=== PATIENT | female | born 1935 | race Caucasian/White ===

== ENCOUNTER → 2018-08-23 05:00 | Outpatient (REF) | payer MEDICARE, OTHER, SELFPAY ==
[2018-08-23 08:07] LABS: Hematocrit 39.5 % (37-47); Mean Corp Hgb Conc 32.9 g/gl (32-36); Mean Corpuscular Hgb 29.7 pg (27.0-32.0); Mean Corpuscular Volume 90.2 fL (81-99); Mean Platelet Vol. 8.3 fl (6.2-12.0); Platelet Count 209 K/mm3 (150-450); RBC Distribution Width SD 42.8 fl (35.1-43.9); Red Blood Count 4.38 M/mm3 (4.2-5.4); White Blood Count 5.9 K/mm3 (4.4-11.0)
[2018-08-23 08:08] LABS: Scan Indicated on CBC? Y/N NO
[2018-08-23 08:22] LABS: Albumin, Serum 3.7 g/dL (3.2-5.0); BUN 15 mg/dL (7-18); BUN/Creat Ratio 19.4 RATIO (10-20); Creatinine, Serum 0.77 mg/dL (0.55-1.02); EST Glomerular Filtration Rate 76 mL/min (>60); Est Glom Filt Rate - Afr Amer 92 mL/min (>60); Glucose 101 mg/dL (74-106); Protein, Total 6.7 g/dL (6.4-8.2)
[2018-08-23 08:23] LABS: ALB/GLOB Ratio 1.2 RATIO (0.9-2.4); AST(SGOT) 24 U/L (15-37); Alanine Aminotransfer ALT/SGPT 34 U/L (13-56); Alkaline Phosphatase 49 U/L (45-117); Anion Gap 6 (5-15); Calcium,Total 8.6 mg/dL (8.5-10.1); Chloride 101 mmol/L (98-107); Cholesterol 139 mg/dL (200); High Density Lipoprotein 57 mg/dL; Potassium 4.2 mmol/L (3.5-5.1); Sodium Level 134 mmol/L (136-145); Triglycerides 94 mg/dL; Very Low Density Lipoprotein 19 mg/dL (5-40)
== END ==
LOC: OLS.DANBUR 05:00
PROVIDERS: Visit Provider Family Medicine
DX: I10 Essential (primary) hypertension (principal); E78.5 Hyperlipidemia, unspecified; E11.9 Type 2 diabetes mellitus without complications; I25.10 Atherosclerotic heart disease of native coronary artery without angina pectoris
CPT/HCPCS: 36415; 80053; 80061; 85027

== ENCOUNTER → 2018-10-25 05:00 | Outpatient (REF) | payer MEDICARE, OTHER, SELFPAY ==
[2018-10-25 09:15] LABS: Hematocrit 41.2 % (37-47); Hemoglobin 13.6 g/dl (12.0-15.0); Mean Corpuscular Hgb 30.2 pg (27.0-32.0); Mean Corpuscular Volume 91.6 fL (81-99); Mean Platelet Vol. 8.4 fl (6.2-12.0); Platelet Count 242 K/mm3 (150-450); RBC Distribution Width CV 13.1 % (11.6-14.6); RBC Distribution Width SD 43.6 fl (35.1-43.9); White Blood Count 7.2 K/mm3 (4.4-11.0)
[2018-10-25 09:17] LABS: Scan Indicated on CBC? Y/N NO
[2018-10-25 09:36] LABS: ALB/GLOB Ratio 1.2 RATIO (0.9-2.4); AST(SGOT) 26 U/L (15-37); Alanine Aminotransfer ALT/SGPT 42 U/L (13-56); Albumin, Serum 3.9 g/dL (3.2-5.0); Alkaline Phosphatase 56 U/L (45-117); Anion Gap 7 (5-15); BUN 12 mg/dL (7-18); BUN/Creat Ratio 15.3 RATIO (10-20); Calcium,Total 8.8 mg/dL (8.5-10.1); Chloride 100 mmol/L (98-107); Cholesterol 140 mg/dL (200); Creatinine, Serum 0.78 mg/dL (0.55-1.02); EST Glomerular Filtration Rate 75 mL/min (>60); Est Glom Filt Rate - Afr Amer 91 mL/min (>60); Globulin 3.3 g/dL (2.2-4.2); Glucose 116 mg/dL (74-106); High Density Lipoprotein 60 mg/dL; Potassium 4.4 mmol/L (3.5-5.1); Protein, Total 7.2 g/dL (6.4-8.2); Sodium Level 136 mmol/L (136-145); Triglycerides 108 mg/dL; Very Low Density Lipoprotein 22 mg/dL (5-40)
== END ==
LOC: OLS.DANBUR 05:00
PROVIDERS: Visit Provider Family Medicine
DX: I10 Essential (primary) hypertension (principal); E78.5 Hyperlipidemia, unspecified; F03.90 Unspecified dementia, unspecified severity, without behavioral disturbance, psychotic disturbance, mood disturbance, and anxiety; I25.10 Atherosclerotic heart disease of native coronary artery without angina pectoris; E11.9 Type 2 diabetes mellitus without complications
CPT/HCPCS: 36415; 80053; 80061; 84443; 85027

== ENCOUNTER → 2019-11-13 05:00 | Outpatient (REF) | payer MEDICARE, OTHER, SELFPAY ==
[2019-11-13 10:26] LABS: BUN 14 mg/dL (7-18); Creatinine, Serum 0.87 mg/dL (0.55-1.02); EST Glomerular Filtration Rate 66 mL/min (>60); Glucose 243 mg/dL (74-106)
[2019-11-13 10:27] LABS: Anion Gap 10 (5-15); BUN/Creat Ratio 16.1 RATIO (10-20); Calcium,Total 8.5 mg/dL (8.5-10.1); Chloride 87 mmol/L (98-107); Est Glom Filt Rate - Afr Amer 80 mL/min (>60); Potassium 3.8 mmol/L (3.5-5.1); Sodium Level 123 mmol/L (136-145)
== END ==
LOC: OLS.DANBUR 05:00
PROVIDERS: Visit Provider Family Medicine
DX: E11.9 Type 2 diabetes mellitus without complications (principal); I10 Essential (primary) hypertension; E78.5 Hyperlipidemia, unspecified
CPT/HCPCS: 36415; 80048

== ENCOUNTER 2019-11-13 14:26 | Inpatient (IN) | payer MEDICARE, OTHER, SELFPAY ==
--- NOTE | 2019-11-13 14:26 | HP.PCM_ITS ---
<Tierra Aaron - Last Filed: 11/13/19 16:16> Problem List (1) Hypertension Status: Chronic (2) Hyperlipidemia Status: Chronic (3) CAD (coronary artery disease) Status: Chronic (4) Type 2 diabetes mellitus Status: Chronic (5) Anxiety and depression Status: Chronic (6) Dementia Status: Chronic (7) Arthritis Status: Chronic History of Present Illness Date of Admission: 11/13/19 Chief Complaint: Dizziness/lightheadedness, weakness with falls. The patient is a 83 year old F who presents from assisted living facility due to weakness, lightheadedness/dizziness and recent fall. Patient has underlying mild dementia and has difficulty recalling recent events. Daughter at bedside. She denies nausea, vomiting, diarrhea. Complains of right-sided abdominal pain however she recently fell on her right side with unremarkable right hip and knee imaging. She states she feels unsteady on her feet. She saw her primary care physician a few days ago and her sodium was noted to be low. Her medications were adjusted at that time. Patient's symptoms did not improve and repeat BMP today showed worsening hyponatremia. Patient denies history of hyponatremia. Patient states she has been eating and drinking without difficulty. Denies urinary symptoms. She has a past medical history of mild dementia, anxiety with depression, CAD, hypertension, hyperlipidemia, type 2 diabetes mellitus. Past Medical History Past Medical History (Chronic Problems): Chronic Problems Hypertension (Chronic) Hyperlipidemia (Chronic) CAD (coronary artery disease) (Chronic) Type 2 diabetes mellitus (Chronic) Anxiety and depression (Chronic) Dementia (Chronic) Arthritis (Chronic) Home Medications: Ambulatory Orders Medication Instructions Recorded Acetaminophen [Tylenol] 650 mg PO Q6H PRN PRN 11/13/19 Aspirin [Aspir 81] 81 mg PO DAILY 11/13/19 Buspirone HCl 10 mg PO BID 11/13/19 Ezetimibe 10 mg PO DAILY 11/13/19 Hydrocortisone 2.5% Crm [Hytone] 1 applic TOPICAL BID 11/13/19 Lorazepam [Ativan] 0.5 mg PO BID PRN PRN 11/13/19 Losartan Potassium [Cozaar] 50 mg PO DAILY 11/13/19 Magnesium Hydroxide [Milk Of 30 ml PO DAILY PRN 11/13/19 Magnesia] Metformin HCl 500 mg PO BID 11/13/19 Metoprolol(XL)Succ [Toprol Xl 50 mg PO DAILY 11/13/19 (Beta Stephanie)] Polyethylene Glycol 3350 [Miralax] 17 gm PO DAILY PRN 11/13/19 Simvastatin 40 mg PO DAILY 11/13/19 Trazodone HCl 50 mg PO QHS 11/13/19 Venlafaxine HCl 37.5 mg PO BID 11/13/19 Surgical History: appendectomy Psychiatric History: No pertinent psych hx 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 Paternal History Items: - - Denies known paternal medical history including cardiac history. Review of Systems Constitutional: Reports: Malaise, Weakness. Denies: Chills, Fever HEENT: Denies: Head Aches, Sinus Congestion, Sinus Drainage Cardiovascular: Reports: Light Headedness. Denies: Chest Pain, Edema, Palpitations Respiratory: Denies: Cough, Shortness of breath at rest, Sputum production Gastrointestinal: Denies: Abdominal Pain, Constipation, Diarrhea, Nausea, Vomiting Genitourinary: Denies: Dysuria Musculoskeletal: Reports: - - Right hip and groin pain. Denies: Joint Pain, Joint Tenderness Skin: Denies: Rash, Wounds Neurological: Reports: Balance problems, Confusion. Denies: Double vision, Slurred speech, Focal weakness, Headaches Psychiatric: Reports: Anxiety, Depression Hematologic/ Lymphatic: Denies: Easy Bruising, Easy Bleeding VTE Information - Inpt Only VTE Present on Admission: No VTE Mechan Device Prophylaxis: None VTE Pharm Prophylaxis ordered?: Yes - Physical Exam General: Alert, Oriented x3, Cooperative HEENT: Atraumatic, PERRLA, EOMI, Normocephalic Oral: Dry Mucosa Neck: Supple, No JVD, Negative Carotid Bruits Lungs: Clear to auscultation, Normal air movement Cardiovascular: Regular rate, Regular Rhythm, Normal S1, Normal S2, No murmurs Abdomen: Bowel Sounds Present, Soft, Non Tender, Non-Distended Extremities: No clubbing, No cyanosis, No edema, Capillary Refill Less than 3 Seconds Skin: No rashes, No breakdown Musculoskeletal: No Tenderness to Palpation of Joints or Extremities Neurological: Cranial nerves II-XII grossly intact, Neuro grossly intact Psych/Mental Status: Normal Affect, Appropriate Assessment/Plan 1. Acute moderate hyponatremia, suspect hypovolemic hyponatremia-sodium 11/11/2019 126 per PCP records. Psychiatric medications reduced in half and repeat sodium 11/13/2019 123. SSRI reduced 2 days prior due to hyponatremia without improvement. Urine sodium 74 which is also consistent with hypovolemic hyponatremia. Patient is not on diuretics to explain increased urine sodium. Patient has underlying dementia and suspect poor oral intake. Will gently hydrate and trend BMP. If no improvement with hydration, will need further evaluation for adrenal insufficiency/SIADH including serum cortisol. 2. Metabolic encephalopathy, secondary to #1-brain CT 11/11/2019 at [facility] showed no intracranial hemorrhage, mass or abnormal fluid collection. No acute infarct. 3. Weakness with recent fall-recent imaging 11/11/2019: Left Hip x-ray with no acute fracture or dislocation. Left knee x-ray showed no acute fracture or dislocation. No joint effusion. PT/OT. Treatment of hyponatremia as noted above. Obtain orthostatic vitals. 4. CAD-continue aspirin, statin, beta-stephanie. 5. Hypertension-stable, continue losartan, metoprolol. 6. Hyperlipidemia-continue statin, ezetimibe. 7. Type 2 diabetes mellitus- hold metformin regimen. Accu-Cheks with sliding scale insulin. 8. Anxiety with depression-on PRN lorazepam, buspirone, venlafaxine. SSRI reduced by PCP due to hyponatremia. 9. Mild dementia-resides at [facility]. DVT prophylaxis-Lovenox subcu This patient was seen by BEV Watson under the supervision of Dr. Riddle. <Saul Riddle F - Last Filed: 11/13/19 16:56> History of Present Illness The patient is a 83 year old F [] Past Medical History Allergies No Known Allergies Allergy (Verified 11/13/19 16:08) - Physical Exam Vitals/I&O's: Weight: 145 lb Body Mass Index (BMI) 24.9 Laboratory Results 11/13/19 14:40: Total Bilirubin 0.50, Direct Bilirubin 0.17, AST 28, ALT 34, Alkaline Phosphatase 40 L, Total Protein 6.5, Albumin 3.5, Globulin 3.0 11/13/19 14:40: Ammonia 21.0 11/13/19 14:40: WBC 9.0, RBC 4.21, Hgb 13.0, Hct 36.8 L, MCV 87.4, MCH 30.9, M CHC 35.3, RDW Std Deviation 39.2, RDW Coeff of Beni 12.3, Plt Count 253, MPV 8.0 11/13/19 14:40: Magnesium 1.8 11/13/19 14:40: Sodium Pending, Potassium Pending, Chloride Pending, Carbon Dioxide Pending, Anion Gap Pending, BUN Pending, Creatinine Pending, Est GFR (MDRD) Af Amer Pending, Est GFR (MDRD) Non-Af Pending, BUN/Creatinine Ratio Pending, Glucose Pending, Calcium Pending 11/13/19 15:15: Urine Color Yellow, Urine Clarity Clear, Urine pH 6.5, Ur Specific [place] 1.015, Urine Protein 30 H, Urine Glucose (UA) 50 H, Urine Ketones Negative, Urine Occult Blood Negative, Urine Nitrite Negative, Urine Bilirubin Negative, Urine Urobilinogen 4 H, Ur Leukocyte Esterase Negative, Urine RBC 0 SEEN, Urine WBC 0 SEEN, Ur Squamous Epith Cells 0 SEEN, Urine Bacteria 0 SEEN, Urine Mucus 0 SEEN 11/13/19 15:15: Ur Random Sodium 74 11/13/19 16:22: POC Glucose 117 H Current Medications Acetaminophen (Tylenol) 650 mg PO Q6H PRN PRN PRN Reason: Pain Score 1-10/10 Aspirin (Ecotrin) [facility] Atorvastatin Calcium (Lipitor) 20 mg PO QHS [facility] Buspirone HCl (Buspar) 10 mg PO BID [facility] Ezetimibe (Zetia) 10 mg PO DAILY [facility] Enoxaparin Sodium (Lovenox) 40 mg SC DAILY [facility] Sodium Chloride () 250 mls @ 15 mls/hr IV .[id number] PRN PRN Reason: Saline Flush Sodium Chloride () 250 mls @ 15 mls/hr IV .[id number] PRN PRN Reason: Additional IVPB Infusion Sodium Chloride () 1,000 mls @ 100 mls/hr IV .Q10H [facility] Last Admin: 11/13/19 16:23 Dose: 100 mls/hr Documented by: Insulin Human Lispro (Humalog Tank (Bkc)) 0 unit SC [facility]S [facility]; Protocol Last Admin: 11/13/19 16:24 Dose: Not Given Documented by: Lorazepam (Ativan) 0.5 mg PO BID PRN PRN PRN Reason: ANXIETY Losartan Potassium (Cozaar) 50 mg PO DAILY [facility] Magnesium Hydroxide (Milk Of Magnesia) 30 ml PO DAILY PRN PRN Reason: Constipation Metoprolol Succinate (Toprol Xl (Beta Stephanie)) 50 mg PO DAILY [facility] Ondansetron HCl (Zofran) 4 mg IV Q8H PRN PRN PRN Reason: NAUSEA Oxycodone HCl (Oxyir) 5 mg PO Q6H PRN PRN PRN Reason: Pain Score 6-10/10 Polyethylene Glycol (Miralax) 17 gm PO DAILY PRN PRN Reason: Constipation Sodium Chloride () 10 - 40 ml IV UD PRN PRN Reason: SALINE FLUSH Trazodone HCl (Desyrel) 50 mg PO QHS [facility] Venlafaxine HCl (Effexor) 37.5 mg PO BID [facility] Code Visit Addendum: Dr. Riddle I personally examined the patient and reviewed the chart. I agree with the above. 83-year-old female who lives in a custodial was directly admitted for hyponatremia and altered mental status. Per report she had been confused for the last couple of days and about 2 or 3 days ago she was found to have a sodium of 126 therefore her mental health medications were cut in half however that was only done last night. Today she was still confused with a sodium of 123 and therefore the rounding physician at the long term facility requested direct admission. She states that she has been having pelvic pain and burning with urination therefore there is a possibility of a UTI therefore will have a UA performed. She had a BMP already done today therefore will do stat LFTs as well as an ammonia. 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 OBSV E&M: [id number] Initial observation care L3
[2019-11-13 14:34] VITALS: BMI 24.9
[2019-11-13 14:49] VITALS: BMI 24.9
[2019-11-13 14:59] LABS: Hematocrit 36.8 % (37-47); Mean Corp Hgb Conc 35.3 g/dL (32-36); Mean Corpuscular Hgb 30.9 pg (27.0-32.0); Mean Corpuscular Volume 87.4 fL (81-99); Platelet Count 253 K/mm3 (150-450); RBC Distribution Width CV 12.3 % (11.6-14.6); RBC Distribution Width SD 39.2 fl (35.1-43.9); Red Blood Count 4.21 M/mm3 (4.2-5.4)
[2019-11-13 15:00] VITALS: BP 133/72; PULSE 79; RESP 18; TEMP 36.8; O2SAT 95
[2019-11-13 15:10] LABS: Magnesium 1.8 mg/dL (1.6-2.6)
[2019-11-13 15:24] LABS: Bacteria 0 SEEN /hpf (None Seen); Mucous, Urine 0 SEEN /hpf (<or=2+); Red Blood Cells-Urine 0 SEEN /hpf (0-5); Squamous Epithelial Cells - UA 0 SEEN /hpf (5-10); White Blood Cells 0 SEEN /hpf (0-5)
[2019-11-13 15:26] LABS: AST(SGOT) 28 U/L (15-37); Alanine Aminotransfer ALT/SGPT 34 U/L (13-56); Albumin, Serum 3.5 g/dL (3.2-5.0); Alkaline Phosphatase 40 U/L (45-117); Bilirubin, Direct 0.17 mg/dL (0.00-0.30); Protein, Total 6.5 g/dL (6.4-8.2)
[2019-11-13 15:32] LABS: Color, Urine Yellow (Yellow); Glucose, Dipstick 50 mg/dl (Normal); Ketone-Dipstick Negative (Negative); Leukocyte Esterase-Dipstick Negative /ul (Negative); Nitrite-Dipstick Negative (Negative); Occult Blood-Urine Negative /ul (Negative); Protein-Dipstick 30 mg/dl (Negative); Specific Gravity, Urine 1.015 (1.002-1.030); Urine Bilirubin Dipstick Negative (Negative); Urine Clarity Clear (Clear); Urine Urobilinogen 4 mg/dl (Normal); Urine pH 6.5 (5.0 - 8.0)
[2019-11-13 15:37] LABS: Urine Sodium 74 mmol/L (Not Establ.)
[2019-11-13] MEDS: 0.9% Normal Saline 1,000 ML 100 ML IV (16:23)
[2019-11-13 16:31] LABS: Bedside Glucose 117 mg/dL (70-110)
[2019-11-13 16:52] LABS: Anion Gap 10 (5-15); BUN 17 mg/dL (7-18); BUN/Creat Ratio 21.1 RATIO (10-20); Calcium,Total 8.6 mg/dL (8.5-10.1); Chloride 89 mmol/L (98-107); EST Glomerular Filtration Rate 73 mL/min (>60); Est Glom Filt Rate - Afr Amer 88 mL/min (>60); Estimated Creatinine Clearance 47.63 ml/min; Glucose 137 mg/dL (74-106); Potassium 3.9 mmol/L (3.5-5.1); Sodium Level 124 mmol/L (136-145)
[2019-11-13 17:30] VITALS: PULSE 85
[2019-11-13 20:07] VITALS: BP 134/74; PULSE 73; RESP 20; TEMP 36.9; O2SAT 97
[2019-11-13 22:00] VITALS: PULSE 77
[2019-11-13] MEDS: traZODone 50 MG Tablet PO (22:40)
[2019-11-13] MEDS: busPIRone 5 MG Tablet 10 MG PO (22:40)
[2019-11-13] MEDS: Atorvastatin Calcium 20 MG Tablet PO (22:40)
[2019-11-13] MEDS: Venlafaxine HCl 75 MG Tablet 37.5 MG PO (22:40)
[2019-11-13] MEDS: Acetaminophen 325 MG Tablet 650 MG PO (22:47)
[2019-11-13 22:51] LABS: Bedside Glucose 131 mg/dL (70-110)
[2019-11-14] VITALS (9 sets, daily range): BP systolic 107–184; BP diastolic 71–96; PULSE 66–104; RESP 16–18; TEMP 36.3–37.1; O2SAT 96–98
[2019-11-14 05:09] LABS: Absolute Lymphocyte Count 2.01 X10^3/uL (0.83-4.51); Absolute Neutrophil Count 4.4 X10^3/uL (2.0-7.7); Basophil# 0.03 X10^3/uL; Basophil% 0.4 % (0-1); Eosinophil# 0.16 X10^3/uL; Eosinophils% 2.1 % (0-5); Hemoglobin 12.8 g/dL (12.0-15.0); Lymphocyte # 2.01 X10^3/ul (4.0); Lymphocyte % 26.5 % (19-41); Mean Corp Hgb Conc 34.6 g/dL (32-36); Mean Corpuscular Hgb 30.2 pg (27.0-32.0); Mean Corpuscular Volume 87.3 fL (81-99); Mean Platelet Vol. 7.9 fl (6.2-12.0); Monocyte# 0.99 X10^3/uL; Monocyte% 13.1 % (0-10); NRBC Flagged by Analyzer 0 % (0-5); Neutrophil # 4.36 X10^3/uL (2.7-7.7); Neutrophil % 57.5 % (47-70); Platelet Count 227 K/mm3 (150-450); RBC Distribution Width CV 12.4 % (11.6-14.6); Red Blood Count 4.24 M/mm3 (4.2-5.4); White Blood Count 7.6 K/mm3 (4.4-11.0)
[2019-11-14 05:24] LABS: Anion Gap 7 (5-15); BUN 12 mg/dL (7-18); BUN/Creat Ratio 18.6 RATIO (10-20); Calcium,Total 8.4 mg/dL (8.5-10.1); Chloride 92 mmol/L (98-107); Creatinine, Serum 0.64 mg/dL (0.55-1.02); EST Glomerular Filtration Rate 94 mL/min (>60); Est Glom Filt Rate - Afr Amer 113 mL/min (>60); Glucose 142 mg/dL (74-106); Potassium 3.7 mmol/L (3.5-5.1); Sodium Level 127 mmol/L (136-145)
[2019-11-14] MEDS: Insulin Lispro 100 UNIT/ML INSULN.PEN SC ×2 (06:55→11:27)
[2019-11-14 06:56] LABS: Bedside Glucose 177 mg/dL (70-110)
[2019-11-14] MEDS: 0.9% Normal Saline 1,000 ML 75 ML IV ×2 (08:01→20:56)
[2019-11-14] MEDS: Aspirin E.C. 81 MG Tablet PO (09:18)
[2019-11-14] MEDS: Metoprolol(XL)Succ 50 MG Tablet PO (09:18)
[2019-11-14] MEDS: busPIRone 5 MG Tablet 10 MG PO ×2 (09:18→20:57)
[2019-11-14] MEDS: Venlafaxine HCl 75 MG Tablet 37.5 MG PO ×2 (09:19→20:57)
[2019-11-14] MEDS: Losartan Potassium 50 MG Tablet PO ×2 (09:19→13:46)
[2019-11-14] MEDS: Enoxaparin 40 MG/0.4 ML Syringe SC (09:19)
[2019-11-14] MEDS: Ezetimibe 10 MG Tablet PO (09:19)
--- NOTE | 2019-11-14 10:40 | RAD_ITS ---
STUDY: X-RAY - PELVIS AND LEFT HIP REASON FOR EXAM: Female, 83 years old. PAIN S/P FALL -- PT HAS PURE WICK INSIDE OF DEPENDS- NON REMOVE ABLE TECHNIQUE: 3 views of the pelvis and hip. COMPARISON: None. FINDINGS: There is a non-specific bowel gas pattern. The catheter is seen overlying the lower pelvis. Degenerative changes in the lower lumbar spine. Normal bilateral iliac wings, sacroiliac joints and visualized sacrum. Normal bilateral superior and inferior pubic rami. There are degenerative changes of the pubic symphysis with articular narrowing and sclerosis. Normal bilateral ischial tuberosities. Normal visualized femoral head. Normal acetabulum. Normal hip joint. RAD/HIP, UNI W/ Pelvis 2-3 Views IMPRESSION: No acute abnormality is seen. Electronically Signed: Jem Snyedr, at 12:50 EST , Service support ,
[2019-11-14 11:45] LABS: Bedside Glucose 253 mg/dL (70-110)
--- NOTE | 2019-11-14 14:28 | CASEMGMT ---
Social work Updates faxed to [facility] for pt. Zakiya Vegas, social work network intern Candace MCGINNIS RN DOCUMENTATION SPECIALIST
--- NOTE | 2019-11-14 14:53 | PCM.PN.HOSP ---
Reason for Visit: Confusion Subjective: A/Ox1. States it is fall, it is 1936, does not know her birthday, thinks she is currently at assisted living. She complains of mid back pain and LLE pain. No fever/chills. No LH/dizziness/CP/HOOVER. Vitals/I&O's: Vital Signs Temp Pulse Resp BP Pulse Ox 97.7 F L 78 18 184/93 H 97 11/14/19 09:16 11/14/19 12:14 11/14/19 09:16 11/14/19 12:14 11/14/19 09:16 Oxygen Delivery Method Room Air Weight: 144 lb 6.444 oz Body Mass Index (BMI) 24.9 Orthostatic Vital Signs Start: 11/14/19 12:14 Freq: q24h Status: Active Protocol: Activity Type Activity Date Activity User E-Sign Co-Sign Detail Recorded Client Recorded Date Recorded By Document 11/14/19 12:14 EY [id number] 11/14/19 12:15 EY 11/14/19 12:14 Orthostatic Vitals Standing -Blood Pressure (90/60-120/80) 178/81 H -Extremity Use Right Arm -Pulse Rate (60-100) 104 H Sitting -Blood Pressure (90/60-120/80) 180/96 H -Extremity Use Right Arm -Pulse Rate (60-100) 89 Lying -Blood Pressure (90/60-120/80) 184/93 H -Extremity Use Right Arm -Pulse Rate (60-100) 78 Intake and Output for Last 24 Hours 11/12/19 11/13/19 11/14/19 23:59 23:59 23:59 Intake Total 1005 / 1005 846.25 / 846.25 Output Total 250 / 250 Balance 755 / 755 846.25 / 846.25 General: Alert, Cooperative, Confused HEENT: Atraumatic, PERRLA, EOMI, Normocephalic Neck: Supple, No JVD, Negative Carotid Bruits Lungs: Clear to auscultation, Normal air movement Cardiovascular: Regular rate, No murmurs Abdomen: Bowel Sounds Present, Soft, Non Tender Extremities: No edema, Capillary Refill Less than 3 Seconds Skin: No rashes, No breakdown Musculoskeletal: No Tenderness to Palpation of Joints or Extremities Neurological: Cranial nerves II-XII grossly intact Psych/Mental Status: Normal Affect, Appropriate Laboratory Results 11/13/19 14:40: Total Bilirubin 0.50, Direct Bilirubin 0.17, AST 28, ALT 34, Alkaline Phosphatase 40 L, Total Protein 6.5, Albumin 3.5, Globulin 3.0 11/13/19 14:40: Ammonia 21.0 11/13/19 14:40: WBC 9.0, RBC 4.21, Hgb 13.0, Hct 36.8 L, MCV 87.4, MCH 30.9, MCHC 35.3, RDW Std Deviation 39.2, RDW Coeff of Beni 12.3, Plt Count 253, MPV 8.0 11/13/19 14:40: Magnesium 1.8 11/13/19 14:40: Sodium 124 L, Potassium 3.9, Chloride 89 L, Carbon Dioxide 25.0, Anion Gap 10, BUN 17, Creatinine 0.80, Estim Creat Clear Calc 47.63, Est GFR (MDRD) Af Amer 88, Est GFR (MDRD) Non-Af 73, BUN/Creatinine Ratio 21.1 H, Glucose 137 H, Calcium 8.6 11/13/19 15:15: Urine Color Yellow, Urine Clarity Clear, Urine pH 6.5, Ur Specific [place] 1.015, Urine Protein 30 H, Urine Glucose (UA) 50 H, Urine Ketones Negative, Urine Occult Blood Negative, Urine Nitrite Negative, Urine Bilirubin Negative, Urine Urobilinogen 4 H, Ur Leukocyte Esterase Negative, Urine RBC 0 SEEN, Urine WBC 0 SEEN, Ur Squamous Epith Cells 0 SEEN, Urine Bacteria 0 SEEN, Urine Mucus 0 SEEN 11/13/19 15:15: Ur Random Sodium 74 11/13/19 16:22: POC Glucose 117 H 11/13/19 22:42: POC Glucose 131 H 11/14/19 05:00: WBC 7.6, RBC 4.24, Hgb 12.8, Hct 37.0, MCV 87.3, MCH 30.2, MCHC 34.6, RDW Std Deviation 40.0, RDW Coeff of Beni 12.4, Plt Count 227, MPV 7.9, Immature Gran % (Auto) 0.400, Neut % (Auto) 57.5, Lymph % (Auto) 26.5, [place] % (Auto) 13.1 H, Eos % (Auto) 2.1, Baso % (Auto) 0.4, Absolute Neuts (auto) 4.4, Absolute Lymphs (auto) 2.01, Nucleated RBC % 0 11/14/19 05:00: Sodium 127 L, Potassium 3.7, Chloride 92 L, Carbon Dioxide 28.0, Anion Gap 7, BUN 12, Creatinine 0.64, Estim Creat Clear Calc 38.10, Est GFR (MDRD) Af Amer 113, Est GFR (MDRD) Non-Af 94, BUN/Creatinine Ratio 18.6, Glucose 142 H, Calcium 8.4 L 11/14/19 05:00: Cortisol 22.10 11/14/19 06:53: POC Glucose 177 H 11/14/19 11:26: POC Glucose 253 H Current Medications Acetaminophen (Tylenol) 650 mg PO Q6H PRN PRN PRN Reason: Pain Score 1-10/10 Last Admin: 11/13/19 22:47 Dose: 650 mg Documented by: Aspirin (Ecotrin) 81 mg [facility] Last Admin: 11/14/19 09:18 Dose: 81 mg Documented by: Atorvastatin Calcium (Lipitor) 20 mg PO QHS [facility] Last Admin: 11/13/19 22:40 Dose: 20 mg Documented by: Buspirone HCl (Buspar) 10 mg PO BID [facility] Last Admin: 11/14/19 09:18 Dose: 10 mg Documented by: Ezetimibe (Zetia) 10 mg PO DAILY [facility] Last Admin: 11/14/19 09:19 Dose: 10 mg Documented by: Enoxaparin Sodium (Lovenox) 40 mg SC DAILY [facility] Last Admin: 11/14/19 09:19 Dose: 40 mg Documented by: Sodium Chloride () 250 mls @ 15 mls/hr IV .[id number] PRN PRN Reason: Saline Flush Sodium Chloride () 250 mls @ 15 mls/hr IV .[id number] PRN PRN Reason: Additional IVPB Infusion Sodium Chloride () 1,000 mls @ 75 mls/hr IV .[id number] [facility] Last Infusion: 11/14/19 10:56 Dose: 75 mls/hr Documented by: Insulin Human Lispro (Humalog Tank (Bkc)) 0 unit SC [facility]; Protocol Last Admin: 11/14/19 11:27 Dose: 4 u Documented by: Lorazepam (Ativan) 0.5 mg PO BID PRN PRN PRN Reason: ANXIETY Losartan Potassium (Cozaar) 100 mg PO DAILY [facility] Magnesium Hydroxide (Milk Of Magnesia) 30 ml PO DAILY PRN PRN Reason: Constipation Metoprolol Succinate (Toprol Xl (Beta Stephanie)) 50 mg PO DAILY [facility] Last Admin: 11/14/19 09:18 Dose: 50 mg Documented by: Ondansetron HCl (Zofran) 4 mg IV Q8H PRN PRN PRN Reason: NAUSEA Oxycodone HCl (Oxyir) 5 mg PO Q6H PRN PRN PRN Reason: Pain Score 6-10/10 Polyethylene Glycol (Miralax) 17 gm PO DAILY PRN PRN Reason: Constipation Sodium Chloride () 10 - 40 ml IV UD PRN PRN Reason: SALINE FLUSH Trazodone HCl (Desyrel) 50 mg PO QHS [facility] Last Admin: 11/13/19 22:40 Dose: 50 mg Documented by: Venlafaxine HCl (Effexor) 37.5 mg PO BID [facility] Last Admin: 11/14/19 09:19 Dose: 37.5 mg Documented by: STROKE Vital Signs/Narrative: Vital Signs Pulse Pulse Pulse BP BP BP 11/14/19 12:14 78 89 104 H 184/93 H 180/96 H 178/81 H Medical Necessity - Tobacco Use Smoking Status: Never smoker Assessment/Plan 1. Hyponatremia with associated acute metabolic encephalopathy- IV fluids, improving. Ideally pt should be transitioned off of trazodone and venlafaxine. high risk for withdrawal and worsening confusion at this time. 2. Weakness, falls, LLE pain - xray pelvis neg. PTOT. Conservative pain treatment. 3. HTN - increased losartan 4. HLD - statin, zetia 5. Anx/depression - continue home meds 6. Dementia - resident of [place] DVT ppx: Lovenox DC planning: return to [place] This patient was seen by Bharath King PA-C under the supervision of Doctor Cottrell.
[2019-11-14 16:56] LABS: Bedside Glucose 109 mg/dL (70-110)
[2019-11-14] MEDS: Lidocaine 5% Patch 1 PATCH TOPICAL (17:56)
[2019-11-14] MEDS: oxyCODONE 5 MG Tablet PO (20:52)
[2019-11-14] MEDS: Acetaminophen 325 MG Tablet 650 MG PO (20:53)
[2019-11-14] MEDS: Atorvastatin Calcium 20 MG Tablet PO (20:57)
[2019-11-14] MEDS: traZODone 50 MG Tablet PO (20:58)
[2019-11-14 21:50] LABS: Bedside Glucose 140 mg/dL (70-110)
--- NOTE | 2019-11-14 22:45 | NURSING ---
pt pulled iv out. blood all over rails, gown and sheets. ativan po given. new iv restarted
[2019-11-14] MEDS: LORazepam 0.5 MG Tablet PO (22:46)
[2019-11-15] MEDS: oxyCODONE 5 MG Tablet PO ×2 (03:11→10:44)
[2019-11-15 03:14] VITALS: BP 160/78; PULSE 80; RESP 18; TEMP 36.9; O2SAT 97
[2019-11-15 06:21] LABS: BUN 11 mg/dL (7-18); Creatinine, Serum 0.63 mg/dL (0.55-1.02); Glucose 134 mg/dL (74-106)
[2019-11-15 06:22] LABS: Anion Gap 5 (5-15); BUN/Creat Ratio 17.4 RATIO (10-20); Calcium,Total 8.4 mg/dL (8.5-10.1); Chloride 98 mmol/L (98-107); EST Glomerular Filtration Rate 96 mL/min (>60); Est Glom Filt Rate - Afr Amer 116 mL/min (>60); Potassium 3.7 mmol/L (3.5-5.1); Sodium Level 130 mmol/L (136-145)
[2019-11-15 06:56] LABS: Bedside Glucose 127 mg/dL (70-110)
[2019-11-15 07:55] VITALS: BP 180/84; PULSE 93; RESP 18; TEMP 37; O2SAT 97
[2019-11-15] MEDS: Aspirin E.C. 81 MG Tablet PO (07:58)
[2019-11-15] MEDS: Venlafaxine HCl 75 MG Tablet 37.5 MG PO (07:59)
[2019-11-15] MEDS: Losartan Potassium 100 MG Tablet PO (07:59)
[2019-11-15] MEDS: busPIRone 5 MG Tablet 10 MG PO (07:59)
[2019-11-15 08:00] VITALS: PULSE 93
[2019-11-15] MEDS: Metoprolol(XL)Succ 50 MG Tablet PO (08:00)
[2019-11-15] MEDS: Ezetimibe 10 MG Tablet PO (08:00)
[2019-11-15] MEDS: Lidocaine 5% Patch 1 PATCH TOPICAL (08:00)
[2019-11-15] MEDS: Enoxaparin 40 MG/0.4 ML Syringe SC (08:01)
--- NOTE | 2019-11-15 08:20 | NURSING ---
Assisted to [facility]. voided and then assisted into chair. Breakfast then came. Personal Alarm on chair on. Call light in reach.
--- NOTE | 2019-11-15 09:41 | NURSING ---
This nurse came to see pt as she had her call light and wanted to get back in bed from her chair. This nurse noticed her earline wrap that was covering her IV was off and IV was out.
--- NOTE | 2019-11-15 10:39 | CASEMGMT ---
Addendum entered by Nimisha Dickinson 11/15/19 12:15: [place] Work Return call from pt dgt Jolynn and she is planning on pt returning to [facility] at time of d/c. SW discussed therapy evals with pt and home health services and dgt states pt has not been doing well with change to walker in the last week and she was not able to get in and out of the car earlier in the week which is unusual for this pt and family agreeable to [facility] for PT/OT. Referral made to Merle at [facility] and orders faxed to [facility]. Phone call to [facility] and they are able to transport pt with pickup time of 1:30. Nursing and family aware. MIR Martinez Original Note: Social Work SW spoke with ELENA Vergara at [facility] and they are able to accept pt back today. If pt needs home health PT/OT Ursula Kennedybury uses [facility]. Phone call to pt dgt Jolynn and left requesting return call to discuss d/c plan. MIR Martinez
[2019-11-15] MEDS: Insulin Lispro 100 UNIT/ML INSULN.PEN SC (11:16)
[2019-11-15 11:31] LABS: Bedside Glucose 253 mg/dL (70-110)
--- NOTE | 2019-11-15 11:33 | DCINST_ITS ---
- Discharge Diagnoses Current Active Problems: Current Active and Chronic Problems Hypertension (Chronic) Hyperlipidemia (Chronic) CAD (coronary artery disease) (Chronic) Type 2 diabetes mellitus (Chronic) Anxiety and depression (Chronic) Dementia (Chronic) Arthritis (Chronic) You will use the following diet at home:: Calorie/Carbohydrate Controlled (specify 1200, 1400, etc) - 1800 yeni / day, Cardiac Your food should be the consistency of: Regular Your liquids should be the consistency of: Regular/Thin Discharge Activity: Return to Normal Activity Additional Instructions: You will need a BMP checked in 2 days. Allergies/Adverse Reactions: Allergies No Known Allergies Allergy (Verified 11/13/19 16:08) Medications to take at Discharge Acetaminophen [Tylenol] 650 mg PO Q6H PRN PRN 11/13/19 Aspirin [Aspir 81] 81 mg PO DAILY 11/13/19 Buspirone HCl 10 mg PO BID 11/13/19 Ezetimibe 10 mg PO DAILY 11/13/19 Hydrocortisone 2.5% Crm [Hytone] 1 applic TOPICAL BID 11/13/19 Lorazepam [Ativan] 0.5 mg PO BID PRN PRN 11/13/19 Losartan Potassium [Cozaar] 50 mg PO DAILY 11/13/19 Magnesium Hydroxide [Milk Of Magnesia] 30 ml PO DAILY PRN 11/13/19 Metformin HCl 500 mg PO BID 11/13/19 Metoprolol(XL)Succ [Toprol Xl (Beta Stephanie)] 50 mg PO DAILY 11/13/19 Polyethylene Glycol 3350 [Miralax] 17 gm PO DAILY PRN 11/13/19 Simvastatin 40 mg PO DAILY 11/13/19 Trazodone HCl 50 mg PO QHS 11/13/19 Venlafaxine HCl 37.5 mg PO BID 11/13/19 Lidocaine [Lidoderm Patch] 1 patch TOPICAL DAILY patch 11/15/19 Primary Care Physician: David Weaver MD [Primary Care Provider] - Please follow up with your Primary Care Physician in: 1-2 weeks Test Results: Test results from this visit will be discussed in further detail at your follow- up appointment, if applicable. Proposed Discharge Date: 11/15/19
[2019-11-15 13:36] VITALS: BP 154/75; PULSE 91; RESP 18; TEMP 36.8; O2SAT 97
--- NOTE | 2019-11-15 13:40 | DS.PCM_ITS ---
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 Operations: None Procedures: None Summary of Care Provided: Hospital Course: The patient is a 83 year old F past medical history significant for dementia, hypertension, CAD, DMt2, anxiety, depression, resident of [facility], who recently had her venlafaxine and trazodone decreased for hyponatremia, who presented to the emergency room with dizziness, lightheadedness, weakness, falls, and increased confusion. She has sodium of 124 in the ER. She had recently fallen on her right side and had an unremarkable x-ray of her hip and knee. She was seen by her PCP who noted that her sodium had been low and had adjusted her home medications at that time. She did not report any issues with eating or drinking. She was admitted for hyponatremia, altered mental status, generalized debility. X-ray of her pelvis was negative. She was given IV fluids as with her dementia she was presumed to have had poor oral intake. Serum cortisol was checked was normal, ammonia was normal. Her sodium gradually improved from 124 to127 to 130. Her blood pressure was poorly controlled while here with systolic in the 180s. Her losartan was increased. Her mental status returned to baseline with improvement of her sodium. She was felt to be stable for return to assisted living. She will need a BMP checked in 2 days. She should remain at the lower doses of venlafaxine and trazodone, and will likely need weaned off of these or transition to other medications that will not affect her sodium gradually as an outpatient. She was discharged back to [facility] in stable condition. She will need follow-up with her PCP in 1 to 2 weeks. This patient was seen by Bharath King PA-C under the supervision of Doctor Janessa. [] - Physical Exam Vitals/I&O's: Vital Signs Temp Pulse Resp BP Pulse Ox 98.3 F 91 18 154/75 H 97 11/15/19 13:36 11/15/19 13:36 11/15/19 13:36 11/15/19 13:36 11/15/19 13:36 Oxygen Delivery Method Room Air Weight: 144 lb 9.972 oz Body Mass Index (BMI) 24.9 Intake and Output for Last 24 Hours 11/13/19 11/14/19 11/15/19 23:59 23:59 23:59 Intake Total 1005 / 1005 1955. / 1332.5 / 1332.5 Output Total 250 / 250 1300 / 1300 Balance 755 / 755 1955. / 32.5 / 32.5 General: Alert, Oriented x3, Cooperative HEENT: Atraumatic, PERRLA, EOMI, Normocephalic Neck: Supple, No JVD, Negative Carotid Bruits Lungs: Clear to auscultation, Normal air movement Cardiovascular: Regular rate, No murmurs Abdomen: Bowel Sounds Present, Soft, Non Tender Extremities: No edema, Capillary Refill Less than 3 Seconds Skin: No rashes, No breakdown Musculoskeletal: No Tenderness to Palpation of Joints or Extremities Neurological: Cranial nerves II-XII grossly intact Psych/Mental Status: Normal Affect, Appropriate Laboratory Results 11/14/19 16:43: POC Glucose 109 11/14/19 20:47: POC Glucose 140 H 11/15/19 05:40: Sodium 130 L, Potassium 3.7, Chloride 98, Carbon Dioxide 27.0, Anion Gap 5, BUN 11, Creatinine 0.63, Estim Creat Clear Calc 38.10, Est GFR (MDRD) Af Amer 116, Est GFR (MDRD) Non-Af 96, BUN/Creatinine Ratio 17.4, Glucose 134 H, Calcium 8.4 L 11/15/19 06:46: POC Glucose 127 H 11/15/19 11:14: POC Glucose 253 H Discharge Diet: Low fat/ Low Cholesterol, 1800 Calorie Control Diet, 2000 mg Sodium Diet Discharge Activity: Return to Normal Activity Home Medications: Medications to take at Discharge Acetaminophen [Tylenol] 650 mg PO Q6H PRN PRN 11/13/19 Aspirin [Aspir 81] 81 mg PO DAILY 11/13/19 Buspirone HCl 10 mg PO BID 11/13/19 Ezetimibe 10 mg PO DAILY 11/13/19 Hydrocortisone 2.5% Crm [Hytone] 1 applic TOPICAL BID 11/13/19 Lorazepam [Ativan] 0.5 mg PO BID PRN PRN 11/13/19 Magnesium Hydroxide [Milk Of Magnesia] 30 ml PO DAILY PRN 11/13/19 Metformin HCl 500 mg PO BID 11/13/19 Metoprolol(XL)Succ [Toprol Xl (Beta Stephanie)] 50 mg PO DAILY 11/13/19 Polyethylene Glycol 3350 [Miralax] 17 gm PO DAILY PRN 11/13/19 Simvastatin 40 mg PO DAILY 11/13/19 Trazodone HCl 50 mg PO QHS 11/13/19 Venlafaxine HCl 37.5 mg PO BID 11/13/19 Lidocaine [Lidoderm Patch] 1 patch TOPICAL DAILY patch 11/15/19 Losartan Potassium 100 mg PO DAILY #30 tab 11/15/19 Following Prescrptions Were Given to Patient: Losartan Potassium 100 mg PO DAILY #30 tab Transmission Status: Received by [facility] [place] - [address] Primary Care Physician: David Weaver MD [Primary Care Provider] - Please follow up with your Primary Care Physician in: 1-2 weeks Disposition: [facility] Living/[facility] [place] Minutes spent on discharge:: 35 Patient Condition:: Stable Medical Necessity - Tobacco Use Smoking Status: Never smoker Meaningful Use Info Meaningful Use Diagnoses (Choose all that apply): None applicable <Saul Riddle F - Last Filed: 11/15/19 16:03> Discharge Date and Diagnosis - Secondary Discharge Diagnosis Chronic Problems Hypertension (Chronic) Hyperlipidemia (Chronic) CAD (coronary artery disease) (Chronic) Type 2 diabetes mellitus (Chronic) Anxiety and depression (Chronic) Dementia (Chronic) Arthritis (Chronic) Hospital Course and Treatment Summary of Care Provided: The patient is a 83 year old F [] - Physical Exam Vitals/I&O's: Vital Signs Temp Pulse Resp BP Pulse Ox 98.3 F 91 18 154/75 H 97 11/15/19 13:36 11/15/19 13:36 11/15/19 13:36 11/15/19 13:36 11/15/19 13:36 Oxygen Delivery Method Room Air Weight: 144 lb 9.972 oz Body Mass Index (BMI) 24.9 Intake and Output for Last 24 Hours 11/13/19 11/14/19 11/15/19 23:59 23:59 23:59 Intake Total 1005 / 1005 1955. / 1332.5 / 1332.5 Output Total 250 / 250 1300 / 1300 Balance 755 / 755 1955. / 32.5 / 32.5 Laboratory Results 11/14/19 16:43: POC Glucose 109 11/14/19 20:47: POC Glucose 140 H 11/15/19 05:40: Sodium 130 L, Potassium 3.7, Chloride 98, Carbon Dioxide 27.0, Anion Gap 5, BUN 11, Creatinine 0.63, Estim Creat Clear Calc 38.10, Est GFR (MDRD) Af Amer 116, Est GFR (MDRD) Non-Af 96, BUN/Creatinine Ratio 17.4, Glucose 134 H, Calcium 8.4 L 11/15/19 06:46: POC Glucose 127 H 11/15/19 11:14: POC Glucose 253 H Addendum: Dr. Riddle I personally examined the patient and reviewed the chart. I agree with the above. 83-year-old female who came in from the shelter with increased confusion and hyponatremia. Her SNRI and trazodone were decreased in dose prior to her presentation to the hospital. She was initially placed on a fluid restriction and had improvement in her hyponatremia from 123 to 127. It was felt that she was in SIADH which is best treated with fluid restriction with, however there is also some concern that she could be hypovolemic and therefore she was also started on IV fluids at 75 also be placed on a fluid restriction. On the day of discharge her confusion had almost completely resolved and her sodium was 130. Initially she was also worked up for possible UTI given her age and confusion however the UA was negative. She will be discharged back to her group home facility and will need to have an outpatient sodium obtained to make sure that she is still trending in the right direction. Inpatient E&M: [id number] Disch Hosp
--- NOTE | 2019-11-15 13:55 | NURSING ---
This nurse called Srinivasa Millard and gave Tonja RN report at this time.
== END 2019-11-15 13:37 | disposition home or self-care (01) | DRG 643 ==
PROVIDERS: Internal Medicine; Nurse Practitioner Family; Physician Assistant; Admitting Provider Family Medicine; PCP Family Medicine; Referring Provider Family Medicine; Visit Provider Family Medicine
DX: E22.2 Syndrome of inappropriate secretion of antidiuretic hormone (principal); G93.41 Metabolic encephalopathy; E86.1 Hypovolemia; M25.552 Pain in left hip; W19.XXXA Unspecified fall, initial encounter; Z91.81 History of falling; Y93.9 Activity, unspecified; Y92.9 Unspecified place or not applicable; I10 Essential (primary) hypertension; E78.5 Hyperlipidemia, unspecified; F03.90 Unspecified dementia, unspecified severity, without behavioral disturbance, psychotic disturbance, mood disturbance, and anxiety; F41.8 Other specified anxiety disorders; I25.10 Atherosclerotic heart disease of native coronary artery without angina pectoris; E11.9 Type 2 diabetes mellitus without complications; M19.90 Unspecified osteoarthritis, unspecified site; Z79.82 Long term (current) use of aspirin; Z79.899 Other long term (current) drug therapy; Z79.84 Long term (current) use of oral hypoglycemic drugs
CPT/HCPCS: 36415; 73502; 80048; 80076; 81001; 82140; 82533; 82962; 83735; 84300; 85025; 85027; 97162; 97166; J7030

== ENCOUNTER → 2019-11-18 05:00 | Outpatient (REF) | payer MEDICARE, OTHER, SELFPAY ==
[2019-11-13 14:34] VITALS: BMI 24.9
[2019-11-18 08:53] LABS: Anion Gap 6 (5-15); BUN 16 mg/dL (7-18); BUN/Creat Ratio 23.6 RATIO (10-20); Calcium,Total 9.1 mg/dL (8.5-10.1); Chloride 95 mmol/L (98-107); Creatinine, Serum 0.68 mg/dL (0.55-1.02); EST Glomerular Filtration Rate 88 mL/min (>60); Est Glom Filt Rate - Afr Amer 107 mL/min (>60); Glucose 166 mg/dL (74-106); Potassium 3.9 mmol/L (3.5-5.1); Sodium Level 130 mmol/L (136-145)
== END ==
LOC: OLS.DANBUR 05:00
PROVIDERS: PCP Family Medicine; Visit Provider Family Medicine
DX: I10 Essential (primary) hypertension (principal); E78.5 Hyperlipidemia, unspecified; E11.9 Type 2 diabetes mellitus without complications
CPT/HCPCS: 36415; 80048

== ENCOUNTER → 2019-11-26 05:00 | Outpatient (REF) | payer MEDICARE, OTHER, SELFPAY ==
[2019-11-13 14:34] VITALS: BMI 24.9
[2019-11-26 08:48] LABS: Anion Gap 9 (5-15); BUN 15 mg/dL (7-18); BUN/Creat Ratio 22.6 RATIO (10-20); Chloride 92 mmol/L (98-107); Creatinine, Serum 0.66 mg/dL (0.55-1.02); EST Glomerular Filtration Rate 91 mL/min (>60); Est Glom Filt Rate - Afr Amer 110 mL/min (>60); Glucose 150 mg/dL (74-106); Sodium Level 127 mmol/L (136-145)
== END ==
LOC: OLS.DANBUR 05:00
PROVIDERS: PCP Family Medicine; Visit Provider Family Medicine
DX: E11.9 Type 2 diabetes mellitus without complications (principal); I10 Essential (primary) hypertension; E78.5 Hyperlipidemia, unspecified
CPT/HCPCS: 36415; 80048

== ENCOUNTER → 2019-11-28 10:10 | Outpatient (REF) | payer MEDICARE, OTHER, SELFPAY ==
[2019-11-13 14:34] VITALS: BMI 24.9
[2019-11-28 12:20] LABS: Color, Urine Yellow (Yellow); Glucose, Dipstick 1000 mg/dl (Normal); Ketone-Dipstick 5 mg/dl (Negative); Leukocyte Esterase-Dipstick 500 /ul (Negative); Nitrite-Dipstick Negative (Negative); Occult Blood-Urine 25 /ul (Negative); Protein-Dipstick 30 mg/dl (Negative); Specific Gravity, Urine 1.015 (1.002-1.030); Urine Bilirubin Dipstick Negative (Negative); Urine Clarity Cloudy (Clear); Urine Urobilinogen Normal (Normal); Urine pH 6.5 (5.0 - 8.0)
== END ==
LOC: OLS.DANBUR 10:10
PROVIDERS: PCP Family Medicine; Visit Provider Family Medicine
DX: N39.0 Urinary tract infection, site not specified (principal); R53.1 Weakness; R41.0 Disorientation, unspecified
CPT/HCPCS: 81002; 87086; 87088

== ENCOUNTER → 2019-12-05 05:00 | Outpatient (REF) | payer MEDICARE, OTHER, SELFPAY ==
[2019-11-13 14:34] VITALS: BMI 24.9
[2019-12-05 08:28] LABS: Anion Gap 8 (5-15); BUN 19 mg/dL (7-18); BUN/Creat Ratio 23.5 RATIO (10-20); Calcium,Total 9.2 mg/dL (8.5-10.1); Chloride 94 mmol/L (98-107); Creatinine, Serum 0.81 mg/dL (0.55-1.02); EST Glomerular Filtration Rate 72 mL/min (>60); Est Glom Filt Rate - Afr Amer 87 mL/min (>60); Glucose 140 mg/dL (74-106); Potassium 4.2 mmol/L (3.5-5.1); Sodium Level 130 mmol/L (136-145)
== END ==
LOC: OLS.DANBUR 05:00
PROVIDERS: PCP Family Medicine; Visit Provider Family Medicine
DX: E11.9 Type 2 diabetes mellitus without complications (principal); I10 Essential (primary) hypertension; E78.5 Hyperlipidemia, unspecified; E87.1 Hypo-osmolality and hyponatremia
CPT/HCPCS: 36415; 80048

== ENCOUNTER → 2019-12-19 05:00 | Outpatient (REF) | payer MEDICARE, OTHER, SELFPAY ==
[2019-12-19 08:44] LABS: Anion Gap 7 (5-15); BUN 19 mg/dL (7-18); Calcium,Total 8.8 mg/dL (8.5-10.1); Chloride 97 mmol/L (98-107); Creatinine, Serum 0.82 mg/dL (0.55-1.02); EST Glomerular Filtration Rate 70 mL/min (>60); Est Glom Filt Rate - Afr Amer 85 mL/min (>60); Glucose 137 mg/dL (74-106); Potassium 4.1 mmol/L (3.5-5.1); Sodium Level 132 mmol/L (136-145)
== END ==
LOC: OLS.DANBUR 05:00
PROVIDERS: PCP Family Medicine; Visit Provider Family Medicine
DX: I10 Essential (primary) hypertension (principal); E78.5 Hyperlipidemia, unspecified; E87.1 Hypo-osmolality and hyponatremia
CPT/HCPCS: 36415; 80048

== ENCOUNTER → 2019-12-26 05:00 | Outpatient (REF) | payer MEDICARE, OTHER, SELFPAY ==
[2019-12-26 08:38] LABS: Anion Gap 9 (5-15); BUN 20 mg/dL (7-18); BUN/Creat Ratio 23.6 RATIO (10-20); Calcium,Total 9.1 mg/dL (8.5-10.1); Chloride 95 mmol/L (98-107); Creatinine, Serum 0.85 mg/dL (0.55-1.02); EST Glomerular Filtration Rate 68 mL/min (>60); Est Glom Filt Rate - Afr Amer 83 mL/min (>60); Glucose 145 mg/dL (74-106); Potassium 3.8 mmol/L (3.5-5.1); Sodium Level 132 mmol/L (136-145)
== END ==
LOC: OLS.DANBUR 05:00
PROVIDERS: PCP Family Medicine; Visit Provider Family Medicine
DX: I10 Essential (primary) hypertension (principal); E87.1 Hypo-osmolality and hyponatremia; E78.5 Hyperlipidemia, unspecified
CPT/HCPCS: 36415; 80048

== ENCOUNTER → 2020-01-16 05:00 | Outpatient (REF) | payer MEDICARE, OTHER, SELFPAY ==
[2020-01-16 07:50] LABS: Anion Gap 5 (5-15); BUN 14 mg/dL (7-18); BUN/Creat Ratio 15.4 RATIO (10-20); Calcium,Total 9.3 mg/dL (8.5-10.1); Chloride 100 mmol/L (98-107); Creatinine, Serum 0.91 mg/dL (0.55-1.02); EST Glomerular Filtration Rate 63 mL/min (>60); Est Glom Filt Rate - Afr Amer 76 mL/min (>60); Glucose 149 mg/dL (74-106); Potassium 4.2 mmol/L (3.5-5.1); Sodium Level 133 mmol/L (136-145)
== END ==
LOC: OLS.DANBUR 05:00
PROVIDERS: PCP Family Medicine; Visit Provider Family Medicine
DX: F03.90 Unspecified dementia, unspecified severity, without behavioral disturbance, psychotic disturbance, mood disturbance, and anxiety (principal); E11.9 Type 2 diabetes mellitus without complications; E78.5 Hyperlipidemia, unspecified
CPT/HCPCS: 36415; 80048

== ENCOUNTER → 2020-04-23 05:00 | Outpatient (REF) | payer MEDICARE, OTHER, SELFPAY ==
[2020-04-23 08:41] LABS: Absolute Lymphocyte Count 1.71 X10^3/uL (0.83-4.51); Absolute Neutrophil Count 4.6 X10^3/uL (2.0-7.7); Basophil# 0.02 X10^3/uL; Basophil% 0.3 % (0-1); Eosinophil# 0.24 X10^3/uL; Eosinophils% 3.2 % (0-5); Hematocrit 36.6 % (37-47); Hemoglobin 12.1 g/dL (12.0-15.0); Lymphocyte # 1.71 X10^3/ul (4.0); Lymphocyte % 22.7 % (19-41); Mean Corp Hgb Conc 33.1 g/dL (32-36); Mean Corpuscular Hgb 29.2 pg (27.0-32.0); Mean Corpuscular Volume 88.2 fL (81-99); Mean Platelet Vol. 8.6 fl (6.2-12.0); Monocyte# 0.95 X10^3/uL; Monocyte% 12.6 % (0-10); NRBC Flagged by Analyzer 0 % (0-5); Neutrophil # 4.56 X10^3/uL (2.7-7.7); Neutrophil % 60.4 % (47-70); Platelet Count 261 K/mm3 (150-450); RBC Distribution Width CV 12.6 % (11.6-14.6); RBC Distribution Width SD 40.9 fl (35.1-43.9); Red Blood Count 4.15 M/mm3 (4.2-5.4); White Blood Count 7.5 K/mm3 (4.4-11.0)
[2020-04-23 08:53] LABS: AST(SGOT) 19 U/L (15-37); Alanine Aminotransfer ALT/SGPT 22 U/L (13-56); Albumin, Serum 3.5 g/dL (3.2-5.0); Alkaline Phosphatase 45 U/L (45-117); Anion Gap 6 (5-15); BUN 14 mg/dL (7-18); BUN/Creat Ratio 18.6 RATIO (10-20); Calcium,Total 8.9 mg/dL (8.5-10.1); Chloride 97 mmol/L (98-107); Creatinine, Serum 0.75 mg/dL (0.55-1.02); EST Glomerular Filtration Rate 78 mL/min (>60); Est Glom Filt Rate - Afr Amer 95 mL/min (>60); Globulin 3.5 g/dL (2.2-4.2); Glucose 123 mg/dL (74-106); Potassium 4.3 mmol/L (3.5-5.1); Sodium Level 128 mmol/L (136-145)
== END ==
LOC: OLS.DANBUR 05:00
PROVIDERS: PCP Family Medicine; Visit Provider Family Medicine
DX: I10 Essential (primary) hypertension (principal); E11.9 Type 2 diabetes mellitus without complications; E78.5 Hyperlipidemia, unspecified; I25.10 Atherosclerotic heart disease of native coronary artery without angina pectoris
CPT/HCPCS: 36415; 80053; 85025

== ENCOUNTER → 2020-04-30 05:00 | Outpatient (REF) | payer MEDICARE, OTHER, SELFPAY ==
[2020-04-30 06:25] LABS: BUN 16 mg/dL (7-18); Creatinine, Serum 0.79 mg/dL (0.55-1.02); EST Glomerular Filtration Rate 74 mL/min (>60); Glucose 126 mg/dL (74-106)
[2020-04-30 06:26] LABS: Anion Gap 4 (5-15); BUN/Creat Ratio 20.3 RATIO (10-20); Calcium,Total 9.3 mg/dL (8.5-10.1); Chloride 95 mmol/L (98-107); Est Glom Filt Rate - Afr Amer 90 mL/min (>60); Potassium 4.2 mmol/L (3.5-5.1); Sodium Level 128 mmol/L (136-145)
== END ==
LOC: OLS.DANBUR 05:00
PROVIDERS: PCP Family Medicine; Visit Provider Family Medicine
DX: E11.9 Type 2 diabetes mellitus without complications (principal); I10 Essential (primary) hypertension; E78.5 Hyperlipidemia, unspecified; I25.10 Atherosclerotic heart disease of native coronary artery without angina pectoris; M12.9 Arthropathy, unspecified
CPT/HCPCS: 36415; 80048

== ENCOUNTER → 2020-05-04 04:00 | Outpatient (REF) | payer MEDICARE, OTHER, SELFPAY ==
[2020-05-04 08:17] LABS: Anion Gap 7 (5-15); BUN 18 mg/dL (7-18); BUN/Creat Ratio 23.1 RATIO (10-20); Calcium,Total 9.2 mg/dL (8.5-10.1); Chloride 95 mmol/L (98-107); Creatinine, Serum 0.78 mg/dL (0.55-1.02); EST Glomerular Filtration Rate 75 mL/min (>60); Est Glom Filt Rate - Afr Amer 91 mL/min (>60); Glucose 127 mg/dL (74-106); Potassium 4.3 mmol/L (3.5-5.1); Sodium Level 127 mmol/L (136-145)
== END ==
LOC: OLS.DANBUR 04:00
PROVIDERS: PCP Family Medicine; Visit Provider Family Medicine
DX: E11.9 Type 2 diabetes mellitus without complications (principal); I10 Essential (primary) hypertension; E78.5 Hyperlipidemia, unspecified; I25.10 Atherosclerotic heart disease of native coronary artery without angina pectoris
CPT/HCPCS: 36415; 80048

== ENCOUNTER → 2020-05-19 05:00 | Outpatient (REF) | payer MEDICARE, OTHER, SELFPAY ==
[2020-05-19 09:05] LABS: Anion Gap 6 (5-15); BUN 14 mg/dL (7-18); BUN/Creat Ratio 19.6 RATIO (10-20); Calcium,Total 9.1 mg/dL (8.5-10.1); Chloride 94 mmol/L (98-107); Creatinine, Serum 0.71 mg/dL (0.55-1.02); EST Glomerular Filtration Rate 83 mL/min (>60); Est Glom Filt Rate - Afr Amer 101 mL/min (>60); Glucose 117 mg/dL (74-106); Potassium 4.3 mmol/L (3.5-5.1); Sodium Level 127 mmol/L (136-145)
== END ==
LOC: OLS.DANBUR 05:00
PROVIDERS: PCP Family Medicine; Referring Provider Family Medicine; Visit Provider Family Medicine
DX: I10 Essential (primary) hypertension (principal); E78.5 Hyperlipidemia, unspecified; I25.10 Atherosclerotic heart disease of native coronary artery without angina pectoris
CPT/HCPCS: 36415; 80048

== ENCOUNTER → 2020-07-02 05:00 | Outpatient (REF) | payer MEDICARE, OTHER, SELFPAY ==
[2020-07-02 07:40] LABS: Anion Gap 7 (5-15); BUN 15 mg/dL (7-18); BUN/Creat Ratio 22.1 RATIO (10-20); Chloride 88 mmol/L (98-107); Creatinine, Serum 0.68 mg/dL (0.55-1.02); EST Glomerular Filtration Rate 88 mL/min (>60); Est Glom Filt Rate - Afr Amer 106 mL/min (>60); Glucose 117 mg/dL (74-106); Potassium 4.6 mmol/L (3.5-5.1); Sodium Level 123 mmol/L (136-145)
[2020-07-03 16:36] LABS: Thyroid Stim Hormone (TSH) 3.73 uIU/mL (0.358-3.74)
== END ==
LOC: OLS.DANBUR 05:00
PROVIDERS: PCP Family Medicine; Referring Provider Family Medicine; Visit Provider Family Medicine
DX: F03.90 Unspecified dementia, unspecified severity, without behavioral disturbance, psychotic disturbance, mood disturbance, and anxiety (principal); E11.9 Type 2 diabetes mellitus without complications; I10 Essential (primary) hypertension; E78.5 Hyperlipidemia, unspecified; F33.9 Major depressive disorder, recurrent, unspecified; I25.10 Atherosclerotic heart disease of native coronary artery without angina pectoris
CPT/HCPCS: 36415; 80048; 84443

== ENCOUNTER → 2020-07-09 05:00 | Outpatient (REF) | payer MEDICARE, OTHER, SELFPAY ==
[2020-07-09 08:45] LABS: Sodium Level 126 mmol/L (136-145)
== END ==
LOC: OLS.DANBUR 05:00
PROVIDERS: PCP Family Medicine; Referring Provider Family Medicine; Visit Provider Family Medicine
DX: E87.1 Hypo-osmolality and hyponatremia (principal); I10 Essential (primary) hypertension; E78.5 Hyperlipidemia, unspecified; F03.90 Unspecified dementia, unspecified severity, without behavioral disturbance, psychotic disturbance, mood disturbance, and anxiety; E11.9 Type 2 diabetes mellitus without complications; F33.9 Major depressive disorder, recurrent, unspecified; I25.10 Atherosclerotic heart disease of native coronary artery without angina pectoris; M12.9 Arthropathy, unspecified
CPT/HCPCS: 36415; 84295

== ENCOUNTER → 2020-07-16 05:00 | Outpatient (REF) | payer MEDICARE, OTHER, SELFPAY ==
[2020-07-16 08:52] LABS: Anion Gap 6 (5-15); BUN 15 mg/dL (7-18); BUN/Creat Ratio 22.1 RATIO (10-20); Calcium,Total 9.1 mg/dL (8.5-10.1); Chloride 90 mmol/L (98-107); Creatinine, Serum 0.68 mg/dL (0.55-1.02); EST Glomerular Filtration Rate 88 mL/min (>60); Est Glom Filt Rate - Afr Amer 107 mL/min (>60); Glucose 146 mg/dL (74-106); Potassium 4.3 mmol/L (3.5-5.1); Sodium Level 125 mmol/L (136-145)
== END ==
LOC: OLS.DANBUR 05:00
PROVIDERS: PCP Family Medicine; Visit Provider Family Medicine
DX: F03.90 Unspecified dementia, unspecified severity, without behavioral disturbance, psychotic disturbance, mood disturbance, and anxiety (principal); E11.9 Type 2 diabetes mellitus without complications; I10 Essential (primary) hypertension; E78.5 Hyperlipidemia, unspecified; I25.10 Atherosclerotic heart disease of native coronary artery without angina pectoris
CPT/HCPCS: 36415; 80048

== ENCOUNTER → 2020-07-22 05:00 | Outpatient (REF) | payer MEDICARE, OTHER, SELFPAY ==
[2020-07-22 08:53] LABS: Anion Gap 8 (5-15); BUN 15 mg/dL (7-18); BUN/Creat Ratio 21.7 RATIO (10-20); Calcium,Total 8.9 mg/dL (8.5-10.1); Chloride 89 mmol/L (98-107); Creatinine, Serum 0.69 mg/dL (0.55-1.02); EST Glomerular Filtration Rate 86 mL/min (>60); Est Glom Filt Rate - Afr Amer 104 mL/min (>60); Glucose 138 mg/dL (74-106); Potassium 4.2 mmol/L (3.5-5.1); Sodium Level 125 mmol/L (136-145)
== END ==
LOC: OLS.DANBUR 05:00
PROVIDERS: PCP Family Medicine; Visit Provider Family Medicine
DX: E11.9 Type 2 diabetes mellitus without complications (principal); I10 Essential (primary) hypertension; E78.5 Hyperlipidemia, unspecified; E87.1 Hypo-osmolality and hyponatremia
CPT/HCPCS: 36415; 80048

== ENCOUNTER → 2020-08-20 06:00 | Outpatient (REF) | payer MEDICARE, OTHER, SELFPAY ==
[2020-08-20 09:15] LABS: Anion Gap 7 (5-15); BUN 16 mg/dL (7-18); BUN/Creat Ratio 18.7 RATIO (10-20); Calcium,Total 9.1 mg/dL (8.5-10.1); Chloride 94 mmol/L (98-107); Creatinine, Serum 0.86 mg/dL (0.55-1.02); EST Glomerular Filtration Rate 67 mL/min (>60); Est Glom Filt Rate - Afr Amer 81 mL/min (>60); Glucose 140 mg/dL (74-106); Potassium 3.9 mmol/L (3.5-5.1); Sodium Level 128 mmol/L (136-145)
== END ==
LOC: OLS.DANBUR 06:00
PROVIDERS: PCP Family Medicine; Referring Provider Family Medicine; Visit Provider Family Medicine
DX: E11.9 Type 2 diabetes mellitus without complications (principal); I10 Essential (primary) hypertension; E78.5 Hyperlipidemia, unspecified
CPT/HCPCS: 36415; 80048

== ENCOUNTER → 2020-09-20 20:50 | Outpatient (REF) | payer MEDICARE, OTHER, SELFPAY ==
[2020-09-21 08:09] LABS: Color, Urine Yellow (Yellow); Glucose, Dipstick Normal (Normal); Ketone-Dipstick Negative (Negative); Leukocyte Esterase-Dipstick 500 /ul (Negative); Nitrite-Dipstick Negative (Negative); Occult Blood-Urine Negative /ul (Negative); Protein-Dipstick Negative (Negative); Urine Bilirubin Dipstick Negative (Negative); Urine Clarity Clear (Clear); Urine Urobilinogen Normal (Normal)
== END ==
LOC: OLS.DANBUR 20:50
PROVIDERS: PCP Family Medicine; Visit Provider Family Medicine
DX: N39.0 Urinary tract infection, site not specified (principal)
CPT/HCPCS: 81002; 87086; 87088

== ENCOUNTER → 2020-09-24 05:00 | Outpatient (REF) | payer MEDICARE, OTHER, SELFPAY ==
[2020-09-24 08:11] LABS: AST(SGOT) 12 U/L (15-37); Alanine Aminotransfer ALT/SGPT 19 U/L (13-56); Albumin, Serum 3.4 g/dL (3.2-5.0); Alkaline Phosphatase 44 U/L (45-117); Anion Gap 6 (5-15); BUN 23 mg/dL (7-18); BUN/Creat Ratio 27.3 RATIO (10-20); Calcium,Total 8.9 mg/dL (8.5-10.1); Chloride 96 mmol/L (98-107); Creatinine, Serum 0.84 mg/dL (0.55-1.02); EST Glomerular Filtration Rate 69 mL/min (>60); Est Glom Filt Rate - Afr Amer 83 mL/min (>60); Globulin 3.3 g/dL (2.2-4.2); Glucose 138 mg/dL (74-106); Potassium 4.1 mmol/L (3.5-5.1); Protein, Total 6.7 g/dL (6.4-8.2); Sodium Level 130 mmol/L (136-145)
== END ==
LOC: OLS.DANBUR 05:00
PROVIDERS: PCP Family Medicine; Referring Provider Family Medicine; Visit Provider Family Medicine
DX: E11.9 Type 2 diabetes mellitus without complications (principal); I10 Essential (primary) hypertension; E78.5 Hyperlipidemia, unspecified; I25.10 Atherosclerotic heart disease of native coronary artery without angina pectoris
CPT/HCPCS: 36415; 80053

== ENCOUNTER → 2020-09-25 07:00 | Outpatient (REF) | payer MEDICARE, OTHER, SELFPAY ==
[2020-09-25 08:19] LABS: Color, Urine Yellow (Yellow); Glucose, Dipstick Normal (Normal); Ketone-Dipstick Negative (Negative); Leukocyte Esterase-Dipstick 100 /ul (Negative); Nitrite-Dipstick Negative (Negative); Occult Blood-Urine Negative /ul (Negative); Protein-Dipstick Negative (Negative); Urine Bilirubin Dipstick Negative (Negative); Urine Clarity Sl. Cloudy (Clear); Urine Urobilinogen Normal (Normal); Urine pH 6.5 (5.0 - 8.0)
== END ==
LOC: OLS.DANBUR 07:00
PROVIDERS: PCP Family Medicine; Visit Provider Family Medicine
DX: I25.10 Atherosclerotic heart disease of native coronary artery without angina pectoris (principal); Z79.899 Other long term (current) drug therapy
CPT/HCPCS: 81002; 87077; 87086; 87088; 87186

== ENCOUNTER → 2020-10-28 05:00 | Outpatient (REF) | payer MEDICARE, OTHER, SELFPAY ==
[2020-10-29 07:39] LABS: Color, Urine Yellow (Yellow); Glucose, Dipstick Normal (Normal); Ketone-Dipstick Negative (Negative); Leukocyte Esterase-Dipstick 500 /ul (Negative); Nitrite-Dipstick Negative (Negative); Occult Blood-Urine Negative /ul (Negative); Protein-Dipstick Negative (Negative); Specific Gravity, Urine 1.025 (1.002-1.030); Urine Bilirubin Dipstick Negative (Negative); Urine Clarity Clear (Clear); Urine Urobilinogen Normal (Normal)
== END ==
LOC: OLS.DANBUR 05:00
PROVIDERS: PCP Family Medicine; Referring Provider Family Medicine; Visit Provider Family Medicine
DX: N39.0 Urinary tract infection, site not specified (principal)
CPT/HCPCS: 81002; 87086; 87088

== ENCOUNTER → 2020-11-05 05:00 | Outpatient (REF) | payer MEDICARE, OTHER, SELFPAY ==
[2020-11-05 07:35] LABS: Anion Gap 7 (5-15); BUN 28 mg/dL (7-18); BUN/Creat Ratio 29.8 RATIO (10-20); Calcium,Total 8.9 mg/dL (8.5-10.1); Chloride 99 mmol/L (98-107); Creatinine, Serum 0.94 mg/dL (0.55-1.02); EST Glomerular Filtration Rate 61 mL/min (>60); Est Glom Filt Rate - Afr Amer 73 mL/min (>60); Glucose 152 mg/dL (74-106); Potassium 4.1 mmol/L (3.5-5.1); Sodium Level 132 mmol/L (136-145)
== END ==
LOC: OLS.DANBUR 05:00
PROVIDERS: PCP Family Medicine; Visit Provider Family Medicine
DX: F03.90 Unspecified dementia, unspecified severity, without behavioral disturbance, psychotic disturbance, mood disturbance, and anxiety (principal); I10 Essential (primary) hypertension; E78.5 Hyperlipidemia, unspecified; I25.10 Atherosclerotic heart disease of native coronary artery without angina pectoris; E11.9 Type 2 diabetes mellitus without complications; M12.9 Arthropathy, unspecified
CPT/HCPCS: 36415; 80048

== ENCOUNTER → 2020-12-03 05:00 | Outpatient (REF) | payer MEDICARE, OTHER, SELFPAY ==
[2020-12-03 07:56] LABS: Anion Gap 7 (5-15); BUN 28 mg/dL (7-18); BUN/Creat Ratio 30.3 RATIO (10-20); Calcium,Total 8.8 mg/dL (8.5-10.1); Chloride 101 mmol/L (98-107); Creatinine, Serum 0.92 mg/dL (0.55-1.02); EST Glomerular Filtration Rate 62 mL/min (>60); Est Glom Filt Rate - Afr Amer 75 mL/min (>60); Glucose 156 mg/dL (74-106); Potassium 4.2 mmol/L (3.5-5.1); Sodium Level 136 mmol/L (136-145)
== END ==
LOC: OLS.DANBUR 05:00
PROVIDERS: PCP Family Medicine; Referring Provider Family Medicine; Visit Provider Family Medicine
DX: E11.9 Type 2 diabetes mellitus without complications (principal); I10 Essential (primary) hypertension; E78.5 Hyperlipidemia, unspecified; I25.10 Atherosclerotic heart disease of native coronary artery without angina pectoris
CPT/HCPCS: 36415; 80048

== ENCOUNTER → 2021-01-21 05:00 | Outpatient (REF) | payer MEDICARE, OTHER, SELFPAY ==
[2021-01-21 07:17] LABS: Absolute Neutrophil Count 6.3 X10^3/uL (2.0-7.7); Basophil# 0.03 X10^3/uL; Basophil% 0.3 % (0-1); Eosinophil# 0.27 X10^3/uL; Eosinophils% 2.7 % (0-5); Lymphocyte % 21.7 % (19-41); Mean Corp Hgb Conc 28.6 g/dL (32-36); Mean Platelet Vol. 8.4 fl (6.2-12.0); Monocyte# 1.28 X10^3/uL; Monocyte% 12.6 % (0-10); NRBC Flagged by Analyzer 0 % (0-5); Neutrophil # 6.28 X10^3/uL (2.7-7.7); Neutrophil % 61.8 % (47-70); Platelet Count 381 K/mm3 (150-450); RBC Distribution Width CV 15.6 % (11.6-14.6); RBC Distribution Width SD 39.4 fl (35.1-43.9); White Blood Count 10.2 K/mm3 (4.4-11.0)
[2021-01-21 07:41] LABS: Anion Gap 3 (5-15); BUN 19 mg/dL (7-18); BUN/Creat Ratio 26.2 RATIO (10-20); Calcium,Total 8.7 mg/dL (8.5-10.1); Chloride 93 mmol/L (98-107); Creatinine, Serum 0.72 mg/dL (0.55-1.02); EST Glomerular Filtration Rate 82 mL/min (>60); Est Glom Filt Rate - Afr Amer 99 mL/min (>60); Glucose 121 mg/dL (74-106); Potassium 4.6 mmol/L (3.5-5.1); Sodium Level 124 mmol/L (136-145)
[2021-01-21 14:16] LABS: Pathologist Review Reviewed
== END ==
LOC: OLS.DANBUR 05:00
PROVIDERS: PCP Family Medicine; Visit Provider Family Medicine
DX: I10 Essential (primary) hypertension (principal); E78.5 Hyperlipidemia, unspecified
CPT/HCPCS: 36415; 80048; 85025

== ENCOUNTER 2021-01-21 08:46 | Inpatient (IN) | payer MEDICARE, OTHER, SELFPAY ==
[2021-01-21] VITALS (14 sets, daily range): BP systolic 106–148; BP diastolic 58–84; PULSE 68–76; RESP 16–19; TEMP 36.4–37; O2SAT 98–100; BMI 25.4; BMI 23.8
--- NOTE | 2021-01-21 09:13 | EKG12_ITS ---
Test Reason : ABNORMAL LABS Blood Pressure : / mmHG Vent. Rate : 073 BPM Atrial Rate : 073 BPM P-R Int : 192 ms QRS Dur : 080 ms QT Int : 412 ms P-R-T Axes : 082 074 069 degrees QTc Int : 453 ms Sinus rhythm with marked sinus arrhythmia Septal OR, age undetermined, cannot be excluded Confirmed by MICHAEL HAYNES, MANUEL ([id number]), managing editor GEETHA OKEEFE ([id number]) on 01/25/2021 2:27:04 PM Referred By: PALOMA Confirmed By:MANUEL RODRIGUEZ MD
--- NOTE | 2021-01-21 09:16 | EX.ED.DYSGE1 ---
HPI History of Present Illness Chief Complaint: Abn Labs Informant: patient and family Narrative Narrative: 85-year-old female from [facility] presenting with a hemoglobin of 6. Patient and her daughter provide history. There is been no report of anemia in the past. Patient denies any black or bloody stools. She notes constipation. Apparently constipation is not new. She does have a history of coronary artery disease and takes aspirin. She does note some heartburn occasionally. She states that she has been increasingly short of breath particularly with exertion and notes some chest discomfort with the same. Family notes that she looks pale. Patient states that due to her constipation she tried to disimpact herself today. Patient denies any known coronary artery disease. She has never had a heart attack or heart stents. Other than aspirin she does not take any anticoagulants. [facility] Medical History Anxiety Dementia Diabetes Hyperlipemia Hypertension Home Medications acetaminophen 650 mg PO Q6H PRN PRN 11/13/19 [History Last Taken Unknown] aspirin 81 mg PO DAILY 11/13/19 [History Last Taken Unknown] buspirone 10 mg PO BID 11/13/19 [History Last Taken Unknown] ezetimibe 10 mg PO DAILY 11/13/19 [History Last Taken Unknown] hydrocortisone 1 applic TOPICAL BID 11/13/19 [History Last Taken Unknown] lorazepam 0.5 mg PO BID PRN PRN 11/13/19 [History Last Taken Unknown] metformin 500 mg PO BID 11/13/19 [History Last Taken Unknown] metoprolol succinate 50 mg PO DAILY 11/13/19 [History Last Taken Unknown] polyethylene glycol 3350 17 gm PO DAILY PRN 11/13/19 [History Last Taken Unknown] simvastatin 40 mg PO DAILY 11/13/19 [History Last Taken Unknown] losartan 100 mg PO DAILY #30 tab 11/15/19 [Rx Last Taken Unknown] albuterol sulfate 1.25 mg INHALATION Q4H PRN 01/21/21 [History Last Taken Unknown] furosemide 20 mg PO DAILY 01/21/21 [History Last Taken Unknown] lactulose 10 g PO DAILY PRN 01/21/21 [History Last Taken Unknown] levothyroxine 25 mcg PO DAILY 01/21/21 [History Last Taken Unknown] lorazepam 0.5 mg PO DAILY 01/21/21 [History Last Taken Unknown] Allergy/AdvReac Type Severity Reaction Status Date / Time No Known Allergies Allergy Verified 01/21/21 08:47 Social History (Updated 01/21/21 @ 09:[address] Valente Huynh, DO) housing: assisted living facility Smoking Status: Never smoker ROS ROS ED Constitutional Constitutional ED: Denies chills or weight loss Eyes Eyes: Denies change in vision or diplopia ENT ENT ED: Denies ear pain, rhinorrhea or sore throat Cardiovascular Cardiovascular: Reports chest pain; Denies orthopnea, palpitations or racing heartbeat Respiratory/Chest Respiratory/Chest: Reports dyspnea and dyspnea on exertion; Denies cough or orthopnea Gastrointestinal Gastrointestinal: Reports constipation; Denies abdominal pain, diarrhea, melena, nausea or vomiting Genitourinary Genitourinary ED: Denies dysuria, hematuria or urinary frequency Musculoskeletal Musculoskeletal: Denies arthralgias or myalgias Integumentary Denies abscess or rash Neurologic Neurologic: Reports weakness; Denies headache(s) Psychiatric Psychiatric: Denies anxiety, depression, suicidal ideation or suicidal thoughts Endocrine Endocrinology: Denies polydipsia, polyphagia or polyuria Allergic/Immunologic Allergic/Immunologic ED: Denies mouth swelling, tongue swelling or urticaria EXAM Physical Exam Const Vital Signs: 01/21/21 08:47 01/21/21 08:57 Temperature 97.6 F L Temperature Source Temporal Pulse Rate 73 Respiratory Rate 18 Respiratory Effort Short of Breath Labored Accessory Muscle Use Respiratory Pattern Tachypnea Blood Pressure 115/71 Blood Pressure Mean 85 Pulse Ox 98 Oxygen Delivery Method Room Air Positive well nourished and well developed General Appearance ED: well developed and pallor HEENT Reports normocephalic, head/scalp atraumatic and moist mucous membranes Eyes PERRL and EOMs intact bilaterally General Eye ED: Yes pale conjunctiva Neck no lymphadenopathy, supple and no JVD Resp normal respiratory effort and clear to auscultation bilaterally Cardio regular rate, regular rhythm and no murmurs GI normal to inspection, nondistended, normoactive bowel sounds and non-tender GI Narrative: Rectal examination demonstrates soft light brown stool in the rectal vault. Palpation: soft Back/Spine no CVA tenderness and normal ROM Extremity normal to inspection General Extremety ED: Negative for edema General Extremity: Negative for edema Neuro oriented x3 and CN's II-XII intact bilaterally Sensorium / Orientation: alert Motor Exam: strength 5/5 throughout Psych mental status grossly normal Mood & Affect: anxious; Negative for depressed or tearful Skin no rashes or lesions noted and no wounds General Skin Exam: pallor MDM MDM MDM Narrative Medical decision making narrative: My interpretation of the patient's portable chest x-ray is no acute process normal mediastinal silhouette. Patient stool is Hemoccult positive yet it is soft and light brown. Her hemoglobin is 6.7 on today's labs. Sodium is noted to be low at 124. This has been an issue for her in the past. MCV noted at 68.2. Iron studies were obtained which shows an iron of 12 and a TIBC of 540. Lactic acid at 3.4. Patient is not hypotensive or tachycardic. She has no infectious symptoms. Blood products were ordered I spoke with our hospitalist and neurosurgeon Dr. Griffith. Plan is admission. Lab Data Labs: Laboratory Results - last 24 hr 01/21/21 01/21/21 01/21/21 09:12 09:12 09:12 WBC 10.1 RBC 3.36 L Hgb 6.7 L Hct 22.9 L MCV 68.2 L MCH 19.9 L MCHC 29.3 L RDW Std Deviation 38.1 RDW Coeff of Beni 15.4 H Plt Count 385 MPV 8.1 Immature Gran % (Auto) 0.900 Neut % (Auto) 73.1 H Lymph % (Auto) 15.4 L [place] % (Auto) 8.9 Eos % (Auto) 1.4 Baso % (Auto) 0.3 Absolute Neuts (auto) 7.4 Absolute Lymphs (auto) 1.56 Nucleated RBC % 0 Sodium 124 L Potassium 4.1 Chloride 90 L Carbon Dioxide 26.0 Anion Gap 8 BUN 19 H Creatinine 1.02 Estim Creat Clear Calc 31.53 Est GFR (MDRD) Af Amer 67 Est GFR (MDRD) Non-Af 55 L BUN/Creatinine Ratio 18.6 Glucose 173 H Lactic Acid Calcium 9.0 Iron TIBC Iron Saturation Total Bilirubin 0.80 AST 14 L ALT 20 Alkaline Phosphatase 43 L Troponin I < 0.015 Total Protein 7.2 Albumin 3.8 Globulin 3.4 Albumin/Globulin Ratio 1.1 Blood Type Cancelled A1 Antigen Typing Cancelled Rho(D) Type Cancelled Antibody Screen Cancelled 01/21/21 01/21/21 09:12 09:25 WBC RBC Hgb Hct MCV MCH MCHC RDW Std Deviation RDW Coeff of Beni Plt Count MPV Immature Gran % (Auto) Neut % (Auto) Lymph % (Auto) [place] % (Auto) Eos % (Auto) Baso % (Auto) Absolute Neuts (auto) Absolute Lymphs (auto) Nucleated RBC % Sodium Potassium Chloride Carbon Dioxide Anion Gap BUN Creatinine Estim Creat Clear Calc Est GFR (MDRD) Af Amer Est GFR (MDRD) Non-Af BUN/Creatinine Ratio Glucose Lactic Acid 3.4 H* Calcium Iron 12 L TIBC 540 H Iron Saturation 2.2 L Total Bilirubin AST ALT Alkaline Phosphatase Troponin I Total Protein Albumin Globulin Albumin/Globulin Ratio Blood Type A1 Antigen Typing Rho(D) Type Antibody Screen Radiography Diagnostic Testing: Radiology Impression Chest X-Ray 01/21/21 09:30 IMPRESSION: Hyperinflation. The lungs are clear. Electronically Signed: Jem Snyder MD at 9:44 EDT , Service support , EKG Initial EKG: Attestation: I personally reviewed and interpreted this EKG as follows: Comments: EKG is a sinus rhythm with sinus arrhythmia at a rate of 73 Discharge Plan Dx/Rx/DC Orders Clinical Impression: Anemia requiring transfusions, Hyponatremia, Dyspnea, Chest pain, Anemia, iron deficiency, Elevated lactic acid level Disposition Disposition: Acute Care [facility]
[2021-01-21 09:22] LABS: Absolute Lymphocyte Count 1.56 X10^3/uL (0.83-4.51); Absolute Neutrophil Count 7.4 X10^3/uL (2.0-7.7); Basophil# 0.03 X10^3/uL; Basophil% 0.3 % (0-1); Eosinophil# 0.14 X10^3/uL; Eosinophils% 1.4 % (0-5); Hematocrit 22.9 % (37-47); Hemoglobin 6.7 g/dL (12.0-15.0); Lymphocyte # 1.56 X10^3/ul (0.83-4.51); Lymphocyte % 15.4 % (19-41); Mean Corp Hgb Conc 29.3 g/dL (32-36); Mean Corpuscular Hgb 19.9 pg (27.0-32.0); Mean Corpuscular Volume 68.2 fL (81-99); Mean Platelet Vol. 8.1 fl (6.2-12.0); Monocyte% 8.9 % (0-10); NRBC Flagged by Analyzer 0 % (0-5); Neutrophil # 7.39 X10^3/uL (2.7-7.7); Neutrophil % 73.1 % (47-70); Platelet Count 385 K/mm3 (150-450); RBC Distribution Width CV 15.4 % (11.6-14.6); RBC Distribution Width SD 38.1 fl (35.1-43.9); Red Blood Count 3.36 M/mm3 (4.2-5.4); White Blood Count 10.1 K/mm3 (4.4-11.0)
--- NOTE | 2021-01-21 09:30 | RAD_ITS ---
STUDY: X-RAY CHEST REASON FOR EXAM: Female, 85 years old. SOB TECHNIQUE: Single AP portable view of the chest. COMPARISON: None. FINDINGS: EKG electrodes are seen. Hyperinflation. The lungs are clear. There is no demonstrated pleural abnormality. Normal size heart. Normal mediastinum and tommy. Normal visualized pulmonary arteries. There is atherosclerotic calcification of the aortic arch with tortuosity. Normal visualized thoracic spine. Normal visualized ribs, clavicles, and shoulders. There is no demonstrated abnormality of the visualized soft tissue structures of the upper abdomen. RAD/Chest 1 View (Portable) IMPRESSION: Hyperinflation. The lungs are clear. Electronically Signed: Jem Snyder MD at 9:44 EDT , Service support ,
[2021-01-21 09:36] LABS: ALB/GLOB Ratio 1.1 RATIO (0.9-2.4); AST(SGOT) 14 U/L (15-37); Alanine Aminotransfer ALT/SGPT 20 U/L (13-56); Albumin, Serum 3.8 g/dL (3.2-5.0); Alkaline Phosphatase 43 U/L (45-117); Anion Gap 8 (5-15); BUN 19 mg/dL (7-18); BUN/Creat Ratio 18.6 RATIO (10-20); Chloride 90 mmol/L (98-107); Creatinine, Serum 1.02 mg/dL (0.55-1.02); EST Glomerular Filtration Rate 55 mL/min (>60); Est Glom Filt Rate - Afr Amer 67 mL/min (>60); Estimated Creatinine Clearance 31.53 ml/min; Globulin 3.4 g/dL (2.2-4.2); Glucose 173 mg/dL (74-106); Potassium 4.1 mmol/L (3.5-5.1); Protein, Total 7.2 g/dL (6.4-8.2); Sodium Level 124 mmol/L (136-145)
[2021-01-21 09:39] LABS: Prothrombin Time (Protime)PT. 12.9 SECONDS (11.7-14.9)
[2021-01-21 09:40] LABS: Partial Thromboplast Time 26.9 Seconds (24.1-36.2)
[2021-01-21 09:54] LABS: Iron 12 ug/dL (50-170); Iron Binding Capacity,Total 540 ug/dL (250-450); PERCENT IRON SATURATION 2.2 % (15.0-55.0)
[2021-01-21 10:05] LABS: Lactic Acid 3.4 mmol/L (0.4-1.9)
--- NOTE | 2021-01-21 10:25 | HP.PCM.HOS_ITS ---
HPI - General General Date of Admission: 01/21/21 Chief Complaint: Fatigue, generalised weakness, dyspnea on exertion HPI Narrative RILEY BLUE, is a 85 F who presents with fatigue, generalized weakness, dyspnea on exertion that has been ongoing for about 10 days. Patient is resident in [facility]. Patient is a poor historian, history was obtained from the daughter. No mention of melena or hematochezia. Daughter noticed the patient will progressively short of breath and fatigue. Patient has history of chronic constipation and she self disimpacts. At the time of being seen, she denied any chest pain or dizziness or shortness of breath. Her vitals in the ED were relatively stable. Her hemoglobin was 6, dropped from 12 in 2019 [facility] Medical History (Updated 01/21/21 @ 18:[address] Shanell Carver MD) Anxiety Dementia Diabetes Hyperlipemia Hypertension TIA (transient ischemic attack) Home Medications acetaminophen 650 mg PO Q6H PRN PRN 11/13/19 [History Last Taken Unknown] aspirin 81 mg PO DAILY 11/13/19 [History Last Taken Unknown] buspirone 10 mg PO BID 11/13/19 [History Last Taken Unknown] ezetimibe 10 mg PO DAILY 11/13/19 [History Last Taken Unknown] hydrocortisone 1 applic TOPICAL BID 11/13/19 [History Last Taken Unknown] lorazepam 0.5 mg PO BID PRN PRN 11/13/19 [History Last Taken Unknown] metformin 500 mg PO BID 11/13/19 [History Last Taken Unknown] metoprolol succinate 50 mg PO DAILY 11/13/19 [History Last Taken Unknown] polyethylene glycol 3350 17 gm PO DAILY PRN 11/13/19 [History Last Taken Unknown] simvastatin 40 mg PO DAILY 11/13/19 [History Last Taken Unknown] losartan 100 mg PO DAILY #30 tab 11/15/19 [Rx Last Taken Unknown] albuterol sulfate 1.25 mg INHALATION Q4H PRN 01/21/21 [History Last Taken Unknown] furosemide 20 mg PO DAILY 01/21/21 [History Last Taken Unknown] lactulose 10 g PO DAILY PRN 01/21/21 [History Last Taken Unknown] levothyroxine 25 mcg PO DAILY 01/21/21 [History Last Taken Unknown] lorazepam 0.5 mg PO DAILY 01/21/21 [History Last Taken Unknown] Allergy/AdvReac Type Severity Reaction Status Date / Time No Known Allergies Allergy Verified 01/21/21 08:47 no significant family history Surgical History (Updated 01/21/21 @ 18:[address] Shanell Carver MD) History of appendectomy Social History housing: assisted living facility Smoking Status: Never smoker ROS ROS Narrative Constitutional: Reports: Malaise, Weakness, Fatigue. Denies: Anorexia, Chills, Fever, Night Sweats, Weight Change Eyes: Denies: Blurred vision, Cataracts, Conjunctivae Inflammation, Pain, Redness, Vision Change HEENT: Denies: Difficulty Hearing, Difficulty Swallowing, Head Aches, Hearing Changes, Sinus Congestion, Sinus Drainage Cardiovascular: Denies: Chest Pain, Orthopnea, Palpitations Respiratory: Denies: Cough, Shortness of breath at rest, Sputum production Gastrointestinal: Denies: Abdominal Pain, Nausea, Vomiting Genitourinary: Denies: Dysuria Musculoskeletal: Denies: Joint Pain, Joint stiffness, Joint swelling, Joint Tenderness Skin: Denies: Rash, Wounds Neurological: Denies: Numbness, Tingling, Focal weakness Vital Signs Vital Signs Vital Signs: 01/21/21 08:47 01/21/21 08:57 Temperature 97.6 F L Temperature Source Temporal Pulse Rate 73 Respiratory Rate 18 Respiratory Effort Short of Breath Labored Accessory Muscle Use Respiratory Pattern Tachypnea Blood Pressure 115/71 Blood Pressure Mean 85 Pulse Ox 98 Oxygen Delivery Method Room Air Physical Exam Narrative General: Alert, Oriented x3, Cooperative, No apparent distress, appears pale and frail HEENT: Atraumatic, PERRLA, EOMI, Normocephalic Oral: Moist Mucosa Neck: Supple Lungs: Normal air movement, Diminished Cardiovascular: Regular rate, Regular Rhythm, Normal S1, Normal S2, No murmurs Abdomen: Bowel Sounds Present, Soft, Non Tender, Non-Distended, No Hepato- splenomegaly Extremities: No edema Skin: No rashes Neurological: grossly intact Psych/Mental Status: Normal Affect, Appropriate Lab / Micro Data Result Diagrams: 01/21/21 09:12 01/21/21 09:12 Labs: Laboratory Results - last 24 hr 01/21/21 01/21/21 01/21/21 09:12 09:12 09:12 WBC 10.1 RBC 3.36 L Hgb 6.7 L Hct 22.9 L MCV 68.2 L MCH 19.9 L MCHC 29.3 L RDW Std Deviation 38.1 RDW Coeff of Beni 15.4 H Plt Count 385 MPV 8.1 Immature Gran % (Auto) 0.900 Neut % (Auto) 73.1 H Lymph % (Auto) 15.4 L [place] % (Auto) 8.9 Eos % (Auto) 1.4 Baso % (Auto) 0.3 Absolute Neuts (auto) 7.4 Absolute Lymphs (auto) 1.56 Nucleated RBC % 0 Sodium 124 L Potassium 4.1 Chloride 90 L Carbon Dioxide 26.0 Anion Gap 8 BUN 19 H Creatinine 1.02 Estim Creat Clear Calc 31.53 Est GFR (MDRD) Af Amer 67 Est GFR (MDRD) Non-Af 55 L BUN/Creatinine Ratio 18.6 Glucose 173 H Lactic Acid Calcium 9.0 Iron TIBC Iron Saturation Total Bilirubin 0.80 AST 14 L ALT 20 Alkaline Phosphatase 43 L Troponin I < 0.015 Total Protein 7.2 Albumin 3.8 Globulin 3.4 Albumin/Globulin Ratio 1.1 Blood Type Cancelled A1 Antigen Typing Cancelled Rho(D) Type Cancelled Antibody Screen Cancelled 01/21/21 01/21/21 09:12 09:25 WBC RBC Hgb Hct MCV MCH MCHC RDW Std Deviation RDW Coeff of Beni Plt Count MPV Immature Gran % (Auto) Neut % (Auto) Lymph % (Auto) [place] % (Auto) Eos % (Auto) Baso % (Auto) Absolute Neuts (auto) Absolute Lymphs (auto) Nucleated RBC % Sodium Potassium Chloride Carbon Dioxide Anion Gap BUN Creatinine Estim Creat Clear Calc Est GFR (MDRD) Af Amer Est GFR (MDRD) Non-Af BUN/Creatinine Ratio Glucose Lactic Acid 3.4 H* Calcium Iron 12 L TIBC 540 H Iron Saturation 2.2 L Total Bilirubin AST ALT Alkaline Phosphatase Troponin I Total Protein Albumin Globulin Albumin/Globulin Ratio Blood Type A1 Antigen Typing Rho(D) Type Antibody Screen Micro: Microbiology 01/21/21 09:15 SARS-CoV-2 Antigen (Rapid) - Final Mucosa - Nasopharyngeal 01/21/21 09:12 Stool Occult Blood (WILLA) - Final Stool Occult Blood Positive Radiology Impression Chest X-Ray 01/21/21 09:30 IMPRESSION: Hyperinflation. The lungs are clear. Electronically Signed: Jem Snyder MD at 9:44 EDT , Service support , Assessment & Plan Assessment/Plan (1) Severe anemia: (2) Hyponatremia: (3) Lactic acidosis: (4) Anemia, iron deficiency: QUALIFIERS: Iron deficiency anemia type: chronic blood loss Qualified Code(s): D50.0 - Iron deficiency anemia secondary to blood loss (chronic) (5) Anemia requiring transfusions: (6) Dementia: QUALIFIERS: Dementia type: Alzheimer's Dementia behavioral disturbance: without behavioral disturbance Alzheimer's disease onset: unspecified onset Qualified Code(s): G30.9 - Alzheimer's disease, unspecified; F02.80 - Dementia in other diseases classified elsewhere without behavioral disturbance (7) Type 2 diabetes mellitus: QUALIFIERS: Diabetes mellitus nursing home insulin use: without nursing home use Diabetes mellitus complication status: with other specified complication Qualified Code(s): E11.69 - Type 2 diabetes mellitus with other specified complication (8) Anxiety and depression: (9) CAD (coronary artery disease): QUALIFIERS: Coronary Disease-Associated Artery/Lesion type: [place] artery [place] vs. transplanted heart: [place] heart Associated angina: without angina Qualified Code(s): I25.10 - Atherosclerotic heart disease of [place] coronary artery without angina pectoris (10) Hypertension: QUALIFIERS: Hypertension type: essential hypertension Qualified Code(s): I10 - Essential (primary) hypertension PLAN: 1. Acute severe anemia likely secondary to chronic GI blood loss Likely related to use of NSAIDs as patient was on Aleve and aspirin Admitting hemoglobin is 6, patient being transfused 2 units of packed RBCs would hold NSAIDs, repeat blood work in a.m. 2. Acute GI bleed, likely secondary to gastritis from NSAID use Aleve and aspirin have been held Will continue on IV PPI twice daily 3. Constipation, chronic, will give MiraLAX, mag citrate 4. Type II DM, on Metformin, Metformin on hold, will cover blood glucose checks with insulin sliding scale 5. Hypertension, controlled, home losartan, Lasix held Metoprolol continued 6. Rest of chronic medical problems including dementia, anxiety/depression, CAD, hypertension, complicates care Visit Charges Inpatient E&M: 05928 Subs Hosp L2
--- NOTE | 2021-01-21 12:55 | EX.PCM.CON.S ---
Assessment & Plan Assessment/Plan (1) Anemia requiring transfusions: (2) Anemia, iron deficiency: (3) Fecal occult blood test positive: PLAN: Patient's hemoglobin on admit was 6.7. Patient is currently receiving packed red blood cells. Patient also had low iron at 12. Patient's fecal occult was positive however patient does states she has to disimpact in order to have bowel movements typically does this daily. Per ER physician stool was brown patient denies having any blood in her stool as well. Patient is unsure when she is had a colonoscopy previously. We will plan to discuss with patient's doctors see if important when this was. Currently patient is stable and there is no obvious GI bleed while in the hospital okay to have an outpatient follow-up for endoscopy. Bozena Rod M.D. Pager: [phone] [facility] [address] [place] [address], [facility], [address] [place] [address] Office: [phone] HPI Consult Data Date of Consult: 01/22/21 HPI Narrative HPI Narrative: RILEY BLUE, is a 85 F who admitted due to anemia of 6.7, iron of 12. Patient denies black or bloody stools; however pt has dementia and is a poor historian. ER doctor did state stool was brown on exam,but was +FOBT, pt admits to daily disimpacting herself. Pt lives in assisted living at [facility]. Pt denies abdominal pain currently. d/w pt daughter- she admits pt memory isn't very good as far as history; daughter states she has heard pt c/o constipation/abd pain off and on. Pt states she has had a colonoscopy but couldn't say when/where- daughter also didn't know. Pt is receiving 2 units PRBCs [facility] Medical History (Updated 01/21/21 @ 18:[address] Shanell Carver MD) Anxiety Dementia Diabetes Hyperlipemia Hypertension TIA (transient ischemic attack) Home Medications acetaminophen 650 mg PO Q6H PRN PRN 11/13/19 [History Last Taken Unknown] buspirone 10 mg PO BID 11/13/19 [History Last Taken Unknown] ezetimibe 10 mg PO DAILY 11/13/19 [History Last Taken Unknown] hydrocortisone 1 applic TOPICAL BID 11/13/19 [History Last Taken Unknown] lorazepam 0.5 mg PO BID PRN PRN 11/13/19 [History Last Taken Unknown] metformin 500 mg PO BID 11/13/19 [History Last Taken Unknown] metoprolol succinate 50 mg PO DAILY 11/13/19 [History Last Taken Unknown] polyethylene glycol 3350 17 gm PO DAILY PRN 11/13/19 [History Last Taken Unknown] simvastatin 40 mg PO DAILY 11/13/19 [History Last Taken Unknown] losartan 100 mg PO DAILY #30 tab 11/15/19 [Rx Last Taken Unknown] albuterol sulfate 1.25 mg INHALATION Q4H PRN 01/21/21 [History Last Taken Unknown] furosemide 20 mg PO DAILY 01/21/21 [History Last Taken Unknown] lactulose 10 g PO DAILY PRN 01/21/21 [History Last Taken Unknown] levothyroxine 25 mcg PO DAILY 01/21/21 [History Last Taken Unknown] lorazepam 0.5 mg PO DAILY 01/21/21 [History Last Taken Unknown] docusate sodium [DOK] 200 mg PO BID #0 cap 01/22/21 [Rx Last Taken Unknown] ferrous sulfate 325 mg PO 1200,1700 #0 tab 01/22/21 [Rx Last Taken Unknown] lidocaine [Lidoderm] 2 patch TOPICAL DAILY 14 Days #30 ea 01/22/21 [Rx Last Taken Unknown] pantoprazole 40 mg PO BID #60 tab 01/22/21 [Rx Last Taken Unknown] Allergy/AdvReac Type Severity Reaction Status Date / Time No Known Allergies Allergy Verified 01/21/21 08:47 Surgical History (Updated 01/21/21 @ 18:[address] Shanell Carver MD) History of appendectomy Social History housing: assisted living facility Smoking Status: Never smoker ROS Constitutional Constitutional: Denies anorexia or fever(s) ENT HEENT: Denies dizziness Cardiovascular Cardiovascular: Denies chest pain Respiratory/Chest Respiratory/Chest: Denies shortness of breath at rest Gastrointestinal Gastrointestinal: Reports constipation; Denies abdominal pain, diarrhea, heartburn, hematemesis, hematochezia, melena, rectal bleeding or vomiting Genitourinary Genitourinary: Denies burning urination Musculoskeletal Musculoskeletal: Denies joint pain Integumentary Integumentary: Denies rash Neurologic Neurologic: Denies headache(s) Endocrine Endocrinology: Denies palpitations Hematologic/Lymphatic Hematologic/Lymphatic: Reports anemia; Denies easy bleeding Physical Exam Const alert, oriented x3 and no apparent distress HEENT normocephalic and head/scalp atraumatic Resp normal respiratory effort Cardio regular rate GI soft to palpation; Negative for non-distended Palpation: tender RLQ (mild), RUQ (mild) and other (no PS); Negative for guarding Extremity no clubbing, cyanosis or edema Neuro CN's II-XII intact bilaterally Lab / Micro Data Result Diagrams: 01/22/21 06:13 01/22/21 06:13 Labs: Laboratory Results - last 24 hr 01/21/21 01/21/21 01/21/21 09:12 09:12 09:12 WBC 10.1 RBC 3.36 L Hgb 6.7 L Hct 22.9 L MCV 68.2 L MCH 19.9 L MCHC 29.3 L RDW Std Deviation 38.1 RDW Coeff of Beni 15.4 H Plt Count 385 MPV 8.1 Immature Gran % (Auto) 0.900 Neut % (Auto) 73.1 H Lymph % (Auto) 15.4 L [place] % (Auto) 8.9 Eos % (Auto) 1.4 Baso % (Auto) 0.3 Absolute Neuts (auto) 7.4 Absolute Lymphs (auto) 1.56 Nucleated RBC % 0 PT 12.9 INR 1.0 APTT 26.9 Sodium 124 L Potassium 4.1 Chloride 90 L Carbon Dioxide 26.0 Anion Gap 8 BUN 19 H Creatinine 1.02 Estim Creat Clear Calc 31.53 Est GFR (MDRD) Af Amer 67 Est GFR (MDRD) Non-Af 55 L BUN/Creatinine Ratio 18.6 Glucose 173 H Lactic Acid Calcium 9.0 Iron TIBC Iron Saturation Total Bilirubin 0.80 AST 14 L ALT 20 Alkaline Phosphatase 43 L Troponin I < 0.015 Total Protein 7.2 Albumin 3.8 Globulin 3.4 Albumin/Globulin Ratio 1.1 Blood Type A1 Antigen Typing Rho(D) Type Antibody Screen Crossmatch 01/21/21 01/21/21 01/21/21 09:12 09:12 09:25 WBC RBC Hgb Hct MCV MCH MCHC RDW Std Deviation RDW Coeff of Beni Plt Count MPV Immature Gran % (Auto) Neut % (Auto) Lymph % (Auto) [place] % (Auto) Eos % (Auto) Baso % (Auto) Absolute Neuts (auto) Absolute Lymphs (auto) Nucleated RBC % PT INR APTT Sodium Potassium Chloride Carbon Dioxide Anion Gap BUN Creatinine Estim Creat Clear Calc Est GFR (MDRD) Af Amer Est GFR (MDRD) Non-Af BUN/Creatinine Ratio Glucose Lactic Acid 3.4 H* Calcium Iron 12 L TIBC 540 H Iron Saturation 2.2 L Total Bilirubin AST ALT Alkaline Phosphatase Troponin I Total Protein Albumin Globulin Albumin/Globulin Ratio Blood Type Cancelled A1 Antigen Typing Cancelled Rho(D) Type Cancelled Antibody Screen Cancelled Crossmatch 01/21/21 01/21/21 09:25 09:25 WBC RBC Hgb Hct MCV MCH MCHC RDW Std Deviation RDW Coeff of Beni Plt Count MPV Immature Gran % (Auto) Neut % (Auto) Lymph % (Auto) [place] % (Auto) Eos % (Auto) Baso % (Auto) Absolute Neuts (auto) Absolute Lymphs (auto) Nucleated RBC % PT INR APTT Sodium Potassium Chloride Carbon Dioxide Anion Gap BUN Creatinine Estim Creat Clear Calc Est GFR (MDRD) Af Amer Est GFR (MDRD) Non-Af BUN/Creatinine Ratio Glucose Lactic Acid Calcium Iron TIBC Iron Saturation Total Bilirubin AST ALT Alkaline Phosphatase Troponin I Total Protein Albumin Globulin Albumin/Globulin Ratio Blood Type A POSITIVE A1 Antigen Typing Rho(D) Type Antibody Screen NEGATIVE Crossmatch See Detail Micro: Microbiology 01/21/21 09:15 SARS-CoV-2 Antigen (Rapid) - Final Mucosa - Nasopharyngeal 01/21/21 09:12 Stool Occult Blood (WILLA) - Final Stool Occult Blood Positive Radiology Impression Chest X-Ray 01/21/21 09:30 IMPRESSION: Hyperinflation. The lungs are clear. Electronically Signed: Jem Snyder MD at 9:44 EDT , Service support , Charges/Coding Visit Charges Inpatient E&M: 72073 Init Hosp L3
[2021-01-21 13:30] LABS: Reflex Lactate? Y
[2021-01-21 14:35] LABS: Lactic Acid 3.2 mmol/L (0.4-1.9)
[2021-01-21] MEDS: Polyethylene Glycol 3350 17 GM PACKET PO (14:58)
[2021-01-21] MEDS: Magnesium Citrate 300 ML 150 ML PO (15:34)
[2021-01-21] MEDS: 0.9% Normal Saline 1,000 ML 125 ML IV (16:58)
[2021-01-21 18:35] LABS: Hematocrit 26.8 % (37-47); Hemoglobin 8.2 g/dL (12.0-15.0)
[2021-01-21] MEDS: 0.9% Saline Lock 10 ML Syringe IV (21:38)
[2021-01-21] MEDS: busPIRone 5 MG Tablet 10 MG PO (21:42)
[2021-01-21] MEDS: LORazepam 0.5 MG Tablet PO (21:42)
[2021-01-21 21:46] LABS: Bedside Glucose 110 mg/dL (70-110)
[2021-01-22] MEDS: 0.9% Normal Saline 1,000 ML 125 ML IV (01:05)
[2021-01-22 03:00] VITALS: PULSE 79
[2021-01-22 03:20] VITALS: BP 135/84; PULSE 88; RESP 20; TEMP 36.2; O2SAT 96
[2021-01-22] MEDS: Levothyroxine 25 MCG TABLET PO (05:26)
[2021-01-22 06:42] LABS: Absolute Lymphocyte Count 1.76 X10^3/uL (0.83-4.51); Absolute Neutrophil Count 6.8 X10^3/uL (2.0-7.7); Basophil# 0.04 X10^3/uL; Basophil% 0.4 % (0-1); Eosinophil# 0.19 X10^3/uL; Eosinophils% 1.9 % (0-5); Hematocrit 27.6 % (37-47); Hemoglobin 8.5 g/dL (12.0-15.0); Lymphocyte # 1.76 X10^3/ul (0.83-4.51); Lymphocyte % 17.5 % (19-41); Mean Corp Hgb Conc 30.8 g/dL (32-36); Mean Corpuscular Hgb 22.4 pg (27.0-32.0); Mean Corpuscular Volume 72.6 fL (81-99); Mean Platelet Vol. 8.1 fl (6.2-12.0); Monocyte# 1.18 X10^3/uL; Monocyte% 11.7 % (0-10); NRBC Flagged by Analyzer 0 % (0-5); Neutrophil # 6.82 X10^3/uL (2.7-7.7); Neutrophil % 67.8 % (47-70); Platelet Count 318 K/mm3 (150-450); RBC Distribution Width CV 19.8 % (11.6-14.6); RBC Distribution Width SD 50.3 fl (35.1-43.9); White Blood Count 10.1 K/mm3 (4.4-11.0)
[2021-01-22 06:53] VITALS: PULSE 84
[2021-01-22 06:56] LABS: Bedside Glucose 122 mg/dL (70-110)
[2021-01-22 07:06] LABS: ALB/GLOB Ratio 1.1 RATIO (0.9-2.4); AST(SGOT) 15 U/L (15-37); Alanine Aminotransfer ALT/SGPT 18 U/L (13-56); Albumin, Serum 3.4 g/dL (3.2-5.0); Alkaline Phosphatase 39 U/L (45-117); Anion Gap 4 (5-15); BUN 12 mg/dL (7-18); Calcium,Total 8.3 mg/dL (8.5-10.1); Chloride 99 mmol/L (98-107); Creatinine, Serum 0.71 mg/dL (0.55-1.02); EST Glomerular Filtration Rate 84 mL/min (>60); Est Glom Filt Rate - Afr Amer 102 mL/min (>60); Estimated Creatinine Clearance 35.26 ml/min; Globulin 3.2 g/dL (2.2-4.2); Glucose 121 mg/dL (74-106); Protein, Total 6.6 g/dL (6.4-8.2); Sodium Level 127 mmol/L (136-145)
[2021-01-22 07:31] VITALS: O2SAT 98
--- NOTE | 2021-01-22 07:57 | PCM.TXEXTCAR ---
Diet 01/21/21 11:04 Diet: Clear Liquid Food consistency:: N/A - Liquid only Liquid Consistency:: Regular/Thin Routine Orders/Code Status Routine Lab Work: CBC (within 3 days) and BMP (within 3 days) Code Status: DNRCC-A Therapies Weight Bearing: Weight bearing as tolerated Problem/Diagnosis (1) Severe anemia: Status: Acute (2) Hyponatremia: Status: Acute (3) Lactic acidosis: Status: Acute (4) Anemia, iron deficiency: Status: Acute (5) Anemia requiring transfusions: Status: Acute (6) Dementia: Status: Chronic (7) Type 2 diabetes mellitus: Status: Chronic (8) Anxiety and depression: Status: Chronic (9) CAD (coronary artery disease): Status: Chronic (10) Hypertension: Status: Chronic Allergies/Procedures Done in Hospital Allergies No Known Allergies Allergy (Verified 01/21/21 08:47) Procedures: None Type of Care/Length of Stay Estimated LOS: Convalescent Care Less Than 30 days Type of Care Needed: Skilled Rehab Potential: Fair Prognosis: Good Additional Orders/Day of Discharge H&P will serve as current which was dated: 01/21/21 Day of Discharge: 01/22/21 Dietary and Speech Recommendations Dietitian Recommendations/Changes: Advance PO from clear liquids as medically able to carbohydrate-controlled diet. Will offer ONS as needed once intake established w/ meals. Discharge Plan Admission Admit Date/Time: 01/21/21 10:24 Primary Reason for Your Visit: Severe anemia Attending Provider: Shanell Carver Primary Care Provider: David Weaver Consulting Providers: Bozena Rod Instructions Patient Instructions: ED Chest Pain, Noncardiac Additional Instructions / Restrictions: Take notes of changes to your medications. Continue to keep yourself hydrated. Discharge Orders/Prescriptions Prescriptions: New ferrous sulfate 325 mg (65 mg iron) Tablet 325 mg PO 1200,1700 Qty: 0 RF: 0 docusate sodium [DOK] 100 mg Capsule 200 mg PO BID Qty: 0 RF: 0 pantoprazole 40 mg tablet,delayed release (DR/EC) 40 mg PO BID Qty: 60 RF: 0 Continued metformin 500 MG tablet 500 mg PO BID RF: 0 acetaminophen 325 MG tablet 650 mg PO Q6H PRN PRN (Reason: Pain Score 1-10/10) RF: 0 polyethylene glycol 3350 17 GM packet 17 gm PO DAILY PRN (Reason: Constipation) RF: 0 metoprolol succinate 50 MG tablet 50 mg PO DAILY RF: 0 simvastatin 40 MG tablet 40 mg PO DAILY RF: 0 lorazepam 0.5 MG tablet 0.5 mg PO BID PRN PRN (Reason: Anxiety) RF: 0 buspirone 10 MG tablet 10 mg PO BID RF: 0 hydrocortisone 1 APPLIC cream 1 applic topical BID RF: 0 ezetimibe 10 MG tablet 10 mg PO DAILY RF: 0 losartan 100 MG tablet 100 mg PO DAILY Qty: 30 RF: 0 albuterol sulfate 1.25 mg/3 mL Solution For Nebulization 1.25 mg INHALATION Q4H PRN (Reason: Wheezing) RF: 0 levothyroxine 25 mcg Tablet 25 mcg PO DAILY RF: 0 lorazepam 0.5 mg Tablet 0.5 mg PO DAILY RF: 0 furosemide 20 mg Tablet 20 mg PO DAILY RF: 0 lactulose 10 gram/15 mL Solution 10 g PO DAILY PRN (Reason: Constipation) RF: 0 Discontinued aspirin 81 MG tablet,delayed release (DR/EC) 81 mg PO DAILY RF: 0 Referrals / Follow Up: David Weaver MD [Primary Care Provider] - Bozena Rod MD [STAFF PHYSICIAN] - Within 2 Weeks Disposition Disposition (needs filled in before D/C Order can be placed): Assisted Living
--- NOTE | 2021-01-22 08:15 | PN.SURG_ITS ---
Subjective Subjective Per nursing patient did have a large bowel movement with the half bottle of magnesium citrate. Patient does admit to having issues with constipation daily where she needs to disimpact. No gross blood was seen with bowel movement. Objective Data Objective Data Vital Signs: Vital Signs Temp Pulse Resp BP Pulse Ox 97.1 F L 84 20 H 135/84 H 98 01/22/21 03:20 01/22/21 06:53 01/22/21 03:20 01/22/21 03:20 01/22/21 07:31 Oxygen Delivery Method Room Air Weight: 134 lb 4.184 oz Body Mass Index (BMI) 23.8 Intake & Output: Intake and Output for Last 24 Hours 01/20/21 01/21/21 01/22/21 23:59 23:59 23:59 Intake Total 470 / 530 1473.75 / 1473.75 Output Total 200 / 200 0 / 0 Balance 270 / 330 1473.75 / 1473.75 Lab / Micro Data Result Diagrams: 01/22/21 06:13 01/22/21 06:13 Labs: Laboratory Results - last 24 hr 01/21/21 01/21/21 01/21/21 09:12 09:12 09:12 WBC 10.1 RBC 3.36 L Hgb 6.7 L Hct 22.9 L MCV 68.2 L MCH 19.9 L MCHC 29.3 L RDW Std Deviation 38.1 RDW Coeff of Beni 15.4 H Plt Count 385 MPV 8.1 Immature Gran % (Auto) 0.900 Neut % (Auto) 73.1 H Lymph % (Auto) 15.4 L [place] % (Auto) 8.9 Eos % (Auto) 1.4 Baso % (Auto) 0.3 Absolute Neuts (auto) 7.4 Absolute Lymphs (auto) 1.56 Nucleated RBC % 0 PT 12.9 INR 1.0 APTT 26.9 Sodium 124 L Potassium 4.1 Chloride 90 L Carbon Dioxide 26.0 Anion Gap 8 BUN 19 H Creatinine 1.02 Estim Creat Clear Calc 31.53 Est GFR (MDRD) Af Amer 67 Est GFR (MDRD) Non-Af 55 L BUN/Creatinine Ratio 18.6 Glucose 173 H Lactic Acid Calcium 9.0 Iron TIBC Iron Saturation Total Bilirubin 0.80 AST 14 L ALT 20 Alkaline Phosphatase 43 L Troponin I < 0.015 Total Protein 7.2 Albumin 3.8 Globulin 3.4 Albumin/Globulin Ratio 1.1 POC Glucose Blood Type A1 Antigen Typing Rho(D) Type Antibody Screen Crossmatch 01/21/21 01/21/21 01/21/21 09:12 09:12 09:25 WBC RBC Hgb Hct MCV MCH MCHC RDW Std Deviation RDW Coeff of Beni Plt Count MPV Immature Gran % (Auto) Neut % (Auto) Lymph % (Auto) [place] % (Auto) Eos % (Auto) Baso % (Auto) Absolute Neuts (auto) Absolute Lymphs (auto) Nucleated RBC % PT INR APTT Sodium Potassium Chloride Carbon Dioxide Anion Gap BUN Creatinine Estim Creat Clear Calc Est GFR (MDRD) Af Amer Est GFR (MDRD) Non-Af BUN/Creatinine Ratio Glucose Lactic Acid 3.4 H* Calcium Iron 12 L TIBC 540 H Iron Saturation 2.2 L Total Bilirubin AST ALT Alkaline Phosphatase Troponin I Total Protein Albumin Globulin Albumin/Globulin Ratio POC Glucose Blood Type Cancelled A1 Antigen Typing Cancelled Rho(D) Type Cancelled Antibody Screen Cancelled Crossmatch 01/21/21 01/21/21 01/21/21 09:25 09:25 13:50 WBC RBC Hgb Hct MCV MCH MCHC RDW Std Deviation RDW Coeff of Beni Plt Count MPV Immature Gran % (Auto) Neut % (Auto) Lymph % (Auto) [place] % (Auto) Eos % (Auto) Baso % (Auto) Absolute Neuts (auto) Absolute Lymphs (auto) Nucleated RBC % PT INR APTT Sodium Potassium Chloride Carbon Dioxide Anion Gap BUN Creatinine Estim Creat Clear Calc Est GFR (MDRD) Af Amer Est GFR (MDRD) Non-Af BUN/Creatinine Ratio Glucose Lactic Acid 3.2 H* Calcium Iron TIBC Iron Saturation Total Bilirubin AST ALT Alkaline Phosphatase Troponin I Total Protein Albumin Globulin Albumin/Globulin Ratio POC Glucose Blood Type A POSITIVE A1 Antigen Typing Rho(D) Type Antibody Screen NEGATIVE Crossmatch See Detail 01/21/21 01/21/21 01/22/21 18:16 21:35 06:13 WBC 10.1 RBC 3.80 L Hgb 8.2 L 8.5 L Hct 26.8 L 27.6 L MCV 72.6 L D MCH 22.4 L MCHC 30.8 L D RDW Std Deviation 50.3 H RDW Coeff of Beni 19.8 H Plt Count 318 MPV 8.1 Immature Gran % (Auto) 0.700 Neut % (Auto) 67.8 Lymph % (Auto) 17.5 L [place] % (Auto) 11.7 H Eos % (Auto) 1.9 Baso % (Auto) 0.4 Absolute Neuts (auto) 6.8 Absolute Lymphs (auto) 1.76 Nucleated RBC % 0 PT INR APTT Sodium Potassium Chloride Carbon Dioxide Anion Gap BUN Creatinine Estim Creat Clear Calc Est GFR (MDRD) Af Amer Est GFR (MDRD) Non-Af BUN/Creatinine Ratio Glucose Lactic Acid Calcium Iron TIBC Iron Saturation Total Bilirubin AST ALT Alkaline Phosphatase Troponin I Total Protein Albumin Globulin Albumin/Globulin Ratio POC Glucose 110 Blood Type A1 Antigen Typing Rho(D) Type Antibody Screen Crossmatch 01/22/21 01/22/21 06:13 06:41 WBC RBC Hgb Hct MCV MCH MCHC RDW Std Deviation RDW Coeff of Beni Plt Count MPV Immature Gran % (Auto) Neut % (Auto) Lymph % (Auto) [place] % (Auto) Eos % (Auto) Baso % (Auto) Absolute Neuts (auto) Absolute Lymphs (auto) Nucleated RBC % PT INR APTT Sodium 127 L Potassium 4.0 Chloride 99 Carbon Dioxide 24.0 Anion Gap 4 L BUN 12 Creatinine 0.71 Estim Creat Clear Calc 35.26 Est GFR (MDRD) Af Amer 102 Est GFR (MDRD) Non-Af 84 BUN/Creatinine Ratio 17.0 Glucose 121 H Lactic Acid Calcium 8.3 L Iron TIBC Iron Saturation Total Bilirubin 2.00 H AST 15 ALT 18 Alkaline Phosphatase 39 L Troponin I Total Protein 6.6 Albumin 3.4 Globulin 3.2 Albumin/Globulin Ratio 1.1 POC Glucose 122 H Blood Type A1 Antigen Typing Rho(D) Type Antibody Screen Crossmatch Micro: Microbiology 01/21/21 09:15 Mucosa - Nasopharyngeal SARS-CoV-2 Antigen (Rapid) - Final 01/21/21 09:12 Stool Stool Occult Blood (WILLA) - Final Occult Blood Positive Radiography Diagnostic Testing: Radiology Impression Chest X-Ray 01/21/21 09:30 IMPRESSION: Hyperinflation. The lungs are clear. Electronically Signed: Jem Snyder MD at 9:44 EDT , Service support , Physical Exam Narrative Abdomen: Soft, nondistended, nontender, no peritoneal signs Assessment & Plan Assessment/Plan (1) Anemia requiring transfusions: (2) Anemia, iron deficiency: QUALIFIERS: Iron deficiency anemia type: chronic blood loss Qualified Code(s): D50.0 - Iron deficiency anemia secondary to blood loss (chronic) (3) Fecal occult blood test positive: PLAN: Patient's current hemoglobin is 8.5 after receiving 2 units packed red blood cells. We will plan for an outpatient EGD and colonoscopy. Will have patient on bowel regimen of Colace twice daily along with either senna or MiraLAX daily/as needed as patient will likely be placed on iron which can also cause constipation. Bozena Rod M.D. Pager: [phone] [facility] [address] [place] [address], [address] [place] [address] Office: [phone] Visit Charges Inpatient E&M: 91461 Subs Hosp L2
--- NOTE | 2021-01-22 09:23 | PHA.DC.MR ---
Pharmacy Service has performed discharge medication reconciliation for this patient. The patient's discharge medication list was reviewed for discrepancies and discrepancies were resolved. Home Medications acetaminophen 650 mg PO Q6H PRN PRN 11/13/19 buspirone 10 mg PO BID 11/13/19 ezetimibe 10 mg PO DAILY 11/13/19 hydrocortisone 1 applic TOPICAL BID 11/13/19 lorazepam 0.5 mg PO BID PRN PRN 11/13/19 metformin 500 mg PO BID 11/13/19 metoprolol succinate 50 mg PO DAILY 11/13/19 polyethylene glycol 3350 17 gm PO DAILY PRN 11/13/19 simvastatin 40 mg PO DAILY 11/13/19 losartan 100 mg PO DAILY #30 tab 11/15/19 albuterol sulfate 1.25 mg INHALATION Q4H PRN 01/21/21 furosemide 20 mg PO DAILY 01/21/21 lactulose 10 g PO DAILY PRN 01/21/21 levothyroxine 25 mcg PO DAILY 01/21/21 lorazepam 0.5 mg PO DAILY 01/21/21 docusate sodium [DOK] 200 mg PO BID #0 cap 01/22/21 ferrous sulfate 325 mg PO 1200,1700 #0 tab 01/22/21 pantoprazole 40 mg PO BID #60 tab 01/22/21
[2021-01-22 09:33] VITALS: BP 145/53; PULSE 90; RESP 18; TEMP 37.1; O2SAT 98
[2021-01-22 09:37] VITALS: PULSE 90
[2021-01-22] MEDS: Metoprolol(XL)Succ 50 MG Tablet PO (09:37)
[2021-01-22] MEDS: Docusate Sodium 100 MG Capsule 200 MG PO (09:37)
[2021-01-22] MEDS: LORazepam 0.5 MG Tablet PO (09:37)
[2021-01-22] MEDS: busPIRone 5 MG Tablet 10 MG PO (09:37)
[2021-01-22] MEDS: Ezetimibe 10 MG Tablet PO (09:37)
[2021-01-22] MEDS: Atorvastatin Calcium 20 MG Tablet PO (09:37)
[2021-01-22] MEDS: 0.9% Saline Lock 10 ML Syringe IV ×2 (09:38→11:13)
--- NOTE | 2021-01-22 09:38 | CASEMGMT ---
Patient is from [facility]. SW faxed them clinicals on patient and wrote on fax face sheet that patient will likely be discharged today. STEVE will follow for d/c. Candace MCGINNIS
--- NOTE | 2021-01-22 09:55 | CASEMGMT ---
STEVE spoke with patient's bedside RN, Zahra. She spoke with patient's daughter and patient's son will transport patient back to [facility]. STEVE called Rahel at [facility] and let her know patient will be returning today. STEVE will fax d/c instructions once completed. Candace MCGINNIS
--- NOTE | 2021-01-22 10:09 | NURSING ---
This RN called and gave report to SHUBHAM Bell at [facility]
--- NOTE | 2021-01-22 10:59 | PCM.DC ---
Discharge Instructions Diet Discharge Diet: 2000 mg Sodium Diet Activity Discharge Activity: Return to Normal Activity Follow Up Care Test Results: Test results from this visit will be discussed in further detail at your follow-up appointment, if applicable. Discharge Plan Admission Admit Date/Time: 01/21/21 10:24 Primary Reason for Your Visit: Severe anemia Attending Provider: Shanell Carver Primary Care Provider: David Weaver Consulting Providers: Bozena Rod Instructions Patient Instructions: ED Chest Pain, Noncardiac Additional Instructions / Restrictions: Take notes of changes to your medications. Continue to keep yourself hydrated. Discharge Orders/Prescriptions Prescriptions: New ferrous sulfate 325 mg (65 mg iron) Tablet 325 mg PO 1200,1700 Qty: 0 RF: 0 docusate sodium [DOK] 100 mg Capsule 200 mg PO BID Qty: 0 RF: 0 pantoprazole 40 mg tablet,delayed release (DR/EC) 40 mg PO BID Qty: 60 RF: 0 lidocaine [Lidoderm] 5 % adhesive patch,medicated 2 patch topical DAILY 14 Days Qty: 30 RF: 0 Continued metformin 500 MG tablet 500 mg PO BID RF: 0 acetaminophen 325 MG tablet 650 mg PO Q6H PRN PRN (Reason: Pain Score 1-10/10) RF: 0 polyethylene glycol 3350 17 GM packet 17 gm PO DAILY PRN (Reason: Constipation) RF: 0 metoprolol succinate 50 MG tablet 50 mg PO DAILY RF: 0 simvastatin 40 MG tablet 40 mg PO DAILY RF: 0 lorazepam 0.5 MG tablet 0.5 mg PO BID PRN PRN (Reason: Anxiety) RF: 0 buspirone 10 MG tablet 10 mg PO BID RF: 0 hydrocortisone 1 APPLIC cream 1 applic topical BID RF: 0 ezetimibe 10 MG tablet 10 mg PO DAILY RF: 0 losartan 100 MG tablet 100 mg PO DAILY Qty: 30 RF: 0 albuterol sulfate 1.25 mg/3 mL Solution For Nebulization 1.25 mg INHALATION Q4H PRN (Reason: Wheezing) RF: 0 levothyroxine 25 mcg Tablet 25 mcg PO DAILY RF: 0 lorazepam 0.5 mg Tablet 0.5 mg PO DAILY RF: 0 furosemide 20 mg Tablet 20 mg PO DAILY RF: 0 lactulose 10 gram/15 mL Solution 10 g PO DAILY PRN (Reason: Constipation) RF: 0 Discontinued aspirin 81 MG tablet,delayed release (DR/EC) 81 mg PO DAILY RF: 0 Referrals / Follow Up: David Weaver MD [Primary Care Provider] - Bozena Rod MD [STAFF PHYSICIAN] - Within 2 Weeks Disposition Disposition (needs filled in before D/C Order can be placed): Assisted Living
--- NOTE | 2021-01-22 11:04 | DS.PCM_ITS ---
Providers Date of Admission: 01/21/21 Primary Care Physician: Dr. David Weaver MD Reason For Visit: SEVERE ANEMIA Diagnosis Discharge Diagnosis (1) Anemia requiring transfusions: Status: Acute Code(s): D64.9 - Anemia, unspecified (2) Anemia, iron deficiency: Status: Acute Code(s): D50.9 - Iron deficiency anemia, unspecified Qualifiers: Iron deficiency anemia type: chronic blood loss Qualified Code(s): D50.0 - Iron deficiency anemia secondary to blood loss (chronic) (3) Fecal occult blood test positive: Status: Acute Code(s): R19.5 - Other fecal abnormalities Medications at Discharge Home Medications acetaminophen 650 mg PO Q6H PRN PRN 11/13/19 buspirone 10 mg PO BID 11/13/19 ezetimibe 10 mg PO DAILY 11/13/19 hydrocortisone 1 applic TOPICAL BID 11/13/19 lorazepam 0.5 mg PO BID PRN PRN 11/13/19 metformin 500 mg PO BID 11/13/19 metoprolol succinate 50 mg PO DAILY 11/13/19 polyethylene glycol 3350 17 gm PO DAILY PRN 11/13/19 simvastatin 40 mg PO DAILY 11/13/19 losartan 100 mg PO DAILY #30 tab 11/15/19 albuterol sulfate 1.25 mg INHALATION Q4H PRN 01/21/21 furosemide 20 mg PO DAILY 01/21/21 lactulose 10 g PO DAILY PRN 01/21/21 levothyroxine 25 mcg PO DAILY 01/21/21 lorazepam 0.5 mg PO DAILY 01/21/21 docusate sodium [DOK] 200 mg PO BID #0 cap 01/22/21 ferrous sulfate 325 mg PO 1200,1700 #0 tab 01/22/21 lidocaine [Lidoderm] 2 patch TOPICAL DAILY 14 Days #30 ea 01/22/21 pantoprazole 40 mg PO BID #60 tab 01/22/21 Hospital Course Operations None Procedures None Summary of Care Provided Minutes Spent on Discharge: 40 Hospital Course: 85 F who presents with fatigue, generalized weakness, dyspnea on exertion that has been ongoing for about 10 days. Patient is resident in [facility]. No mention of melena or hematochezia. Daughter noticed the patient will progressively short of breath and fatigue. Patient has history of chronic constipation and she self disimpacts. Her vitals in the ED were relatively stable. Her hemoglobin was 6, dropped from 12 in 2019. Patient was transfused 2 units of packed RBC. Rectal exam done in the emergency room showed soft brown stools. However stool for occult blood was positive. General surgery was consulted. The posttransfusion hemoglobin was 8.5. Patient was managed on a stool regimen with success. There were no acute events overnight except for periods of confusion with patient trying to get out of bed. She was redirectable. She will follow up in the outpatient [facility] general surgery for colonoscopy. Physical Exam Narrative General: Alert, Oriented x2, Cooperative, No apparent distress, appears pale and frail2 HEENT: Atraumatic, PERRLA, EOMI, Normocephalic Oral: Moist Mucosa Neck: Supple Lungs: Normal air movement, Diminished Cardiovascular: Regular rate, Regular Rhythm, Normal S1, Normal S2, No murmurs Abdomen: Bowel Sounds Present, Soft, Non Tender, Non-Distended, No Hepato-splen omegaly Extremities: No edema Skin: No rashes Neurological: grossly intact Psych/Mental Status: Normal Affect, Appropriate ABG / Lab / Microbiology Data Result Diagrams: 01/22/21 06:13 01/22/21 06:13 Laboratory: Laboratory Results - last 24 hr 01/21/21 01/21/21 01/21/21 09:25 13:50 18:16 WBC RBC Hgb 8.2 L Hct 26.8 L MCV MCH MCHC RDW Std Deviation RDW Coeff of Beni Plt Count MPV Immature Gran % (Auto) Neut % (Auto) Lymph % (Auto) [place] % (Auto) Eos % (Auto) Baso % (Auto) Absolute Neuts (auto) Absolute Lymphs (auto) Nucleated RBC % Sodium Potassium Chloride Carbon Dioxide Anion Gap BUN Creatinine Estim Creat Clear Calc Est GFR (MDRD) Af Amer Est GFR (MDRD) Non-Af BUN/Creatinine Ratio Glucose Lactic Acid 3.2 H* Calcium Total Bilirubin AST ALT Alkaline Phosphatase Total Protein Albumin Globulin Albumin/Globulin Ratio POC Glucose Crossmatch See Detail 01/21/21 01/22/21 01/22/21 21:35 06:13 06:13 WBC 10.1 RBC 3.80 L Hgb 8.5 L Hct 27.6 L MCV 72.6 L D MCH 22.4 L MCHC 30.8 L D RDW Std Deviation 50.3 H RDW Coeff of Beni 19.8 H Plt Count 318 MPV 8.1 Immature Gran % (Auto) 0.700 Neut % (Auto) 67.8 Lymph % (Auto) 17.5 L [place] % (Auto) 11.7 H Eos % (Auto) 1.9 Baso % (Auto) 0.4 Absolute Neuts (auto) 6.8 Absolute Lymphs (auto) 1.76 Nucleated RBC % 0 Sodium 127 L Potassium 4.0 Chloride 99 Carbon Dioxide 24.0 Anion Gap 4 L BUN 12 Creatinine 0.71 Estim Creat Clear Calc 35.26 Est GFR (MDRD) Af Amer 102 Est GFR (MDRD) Non-Af 84 BUN/Creatinine Ratio 17.0 Glucose 121 H Lactic Acid Calcium 8.3 L Total Bilirubin 2.00 H AST 15 ALT 18 Alkaline Phosphatase 39 L Total Protein 6.6 Albumin 3.4 Globulin 3.2 Albumin/Globulin Ratio 1.1 POC Glucose 110 Crossmatch 01/22/21 06:41 WBC RBC Hgb Hct MCV MCH MCHC RDW Std Deviation RDW Coeff of Beni Plt Count MPV Immature Gran % (Auto) Neut % (Auto) Lymph % (Auto) [place] % (Auto) Eos % (Auto) Baso % (Auto) Absolute Neuts (auto) Absolute Lymphs (auto) Nucleated RBC % Sodium Potassium Chloride Carbon Dioxide Anion Gap BUN Creatinine Estim Creat Clear Calc Est GFR (MDRD) Af Amer Est GFR (MDRD) Non-Af BUN/Creatinine Ratio Glucose Lactic Acid Calcium Total Bilirubin AST ALT Alkaline Phosphatase Total Protein Albumin Globulin Albumin/Globulin Ratio POC Glucose 122 H Crossmatch Microbiology: Microbiology 01/21/21 09:15 SARS-CoV-2 Antigen (Rapid) - Final Mucosa - Nasopharyngeal 01/21/21 09:12 Stool Occult Blood (WILLA) - Final Stool Occult Blood Positive Microbiology 01/21/21 09:15 Mucosa - Nasopharyngeal SARS-CoV-2 Antigen (Rapid) - Final 01/21/21 09:12 Stool Stool Occult Blood (WILLA) - Final Occult Blood Positive D/C Instructions Discharge Diet: 2000 mg Sodium Diet Discharge Activity: Return to Normal Activity Meaningful Use Info Meaningful Use Diagnoses (Choose all that apply): None applicable Discharge Plan Admission Admit Date/Time: 01/21/21 10:24 Primary Reason for Your Visit: Severe anemia Attending Provider: Shanell Carver Primary Care Provider: David Weaver Consulting Providers: Bozena Rod Instructions Patient Instructions: ED Chest Pain, Noncardiac Additional Instructions / Restrictions: Take notes of changes to your medications. Continue to keep yourself hydrated. Discharge Orders/Prescriptions Prescriptions: New ferrous sulfate 325 mg (65 mg iron) Tablet 325 mg PO 1200,1700 Qty: 0 RF: 0 docusate sodium [DOK] 100 mg Capsule 200 mg PO BID Qty: 0 RF: 0 pantoprazole 40 mg tablet,delayed release (DR/EC) 40 mg PO BID Qty: 60 RF: 0 lidocaine [Lidoderm] 5 % adhesive patch,medicated 2 patch topical DAILY 14 Days Qty: 30 RF: 0 Continued metformin 500 MG tablet 500 mg PO BID RF: 0 acetaminophen 325 MG tablet 650 mg PO Q6H PRN PRN (Reason: Pain Score 1-10/10) RF: 0 polyethylene glycol 3350 17 GM packet 17 gm PO DAILY PRN (Reason: Constipation) RF: 0 metoprolol succinate 50 MG tablet 50 mg PO DAILY RF: 0 simvastatin 40 MG tablet 40 mg PO DAILY RF: 0 lorazepam 0.5 MG tablet 0.5 mg PO BID PRN PRN (Reason: Anxiety) RF: 0 buspirone 10 MG tablet 10 mg PO BID RF: 0 hydrocortisone 1 APPLIC cream 1 applic topical BID RF: 0 ezetimibe 10 MG tablet 10 mg PO DAILY RF: 0 losartan 100 MG tablet 100 mg PO DAILY Qty: 30 RF: 0 albuterol sulfate 1.25 mg/3 mL Solution For Nebulization 1.25 mg INHALATION Q4H PRN (Reason: Wheezing) RF: 0 levothyroxine 25 mcg Tablet 25 mcg PO DAILY RF: 0 lorazepam 0.5 mg Tablet 0.5 mg PO DAILY RF: 0 furosemide 20 mg Tablet 20 mg PO DAILY RF: 0 lactulose 10 gram/15 mL Solution 10 g PO DAILY PRN (Reason: Constipation) RF: 0 Discontinued aspirin 81 MG tablet,delayed release (DR/EC) 81 mg PO DAILY RF: 0 Referrals / Follow Up: David Weaver MD [Primary Care Provider] - Bozena Rod MD [STAFF PHYSICIAN] - Within 2 Weeks Disposition Disposition (needs filled in before D/C Order can be placed): Assisted Living
--- NOTE | 2021-01-22 11:07 | CASEMGMT ---
D/C instructions were faxed to [facility]. Candace España ORAL AND MAXILLOFACIAL PATHOLOGIST TECHNICAL SUPPORT REPRESENTATIVE
[2021-01-22] MEDS: Insulin Lispro 100 UNIT/ML INSULN.PEN SC (11:13)
[2021-01-22] MEDS: Furosemide 20 MG/2 ML VIAL IV (11:13)
[2021-01-22 11:20] LABS: Bedside Glucose 179 mg/dL (70-110)
[2021-01-22] MEDS: Ferrous Sulfate 325 MG Tablet PO (12:23)
== END 2021-01-22 16:09 | disposition home or self-care (01) | DRG 812 ==
LOC: ED 10:34 → PCU 10:41
PROVIDERS: Admitting Provider Internal Medicine; Emergency Provider Emergency Medicine; PCP Family Medicine; Visit Provider Internal Medicine
DX: D50.0 Iron deficiency anemia secondary to blood loss (chronic) (principal); E87.2 Acidosis; E87.1 Hypo-osmolality and hyponatremia; F41.9 Anxiety disorder, unspecified; E11.9 Type 2 diabetes mellitus without complications; E78.5 Hyperlipidemia, unspecified; I10 Essential (primary) hypertension; Z86.73 Personal history of transient ischemic attack (TIA), and cerebral infarction without residual deficits; K59.00 Constipation, unspecified; G30.9 Alzheimer's disease, unspecified; F02.80 Dementia in other diseases classified elsewhere, unspecified severity, without behavioral disturbance, psychotic disturbance, mood disturbance, and anxiety; I25.10 Atherosclerotic heart disease of native coronary artery without angina pectoris; R19.5 Other fecal abnormalities; Z79.82 Long term (current) use of aspirin; Z90.49 Acquired absence of other specified parts of digestive tract
CPT/HCPCS: 36415; 71045; 80048; 80053; 82274; 82962; 83540; 83550; 83605; 84484; 85014; 85018; 85025; 85610; 85730; 86850; 86900; 86901; 86920; 87426; 93005; 97802; 99284; J7030; J7040; P9016; A4216; J1940

== ENCOUNTER → 2021-02-09 05:00 | Outpatient (REF) | payer MEDICARE, OTHER, SELFPAY ==
[2021-01-21 11:04] VITALS: BMI 23.8
[2021-02-09 08:49] LABS: Absolute Lymphocyte Count 2.01 X10^3/uL (0.83-4.51); Absolute Neutrophil Count 5.6 X10^3/uL (2.0-7.7); Basophil# 0.05 X10^3/uL; Basophil% 0.6 % (0-1); Eosinophil# 0.23 X10^3/uL; Eosinophils% 2.6 % (0-5); Hematocrit 30.8 % (37-47); Hemoglobin 9.2 g/dL (12.0-15.0); Lymphocyte # 2.01 X10^3/ul (0.83-4.51); Lymphocyte % 22.4 % (19-41); Mean Corp Hgb Conc 29.9 g/dL (32-36); Mean Platelet Vol. 8.5 fl (6.2-12.0); Monocyte# 1.01 X10^3/uL; Monocyte% 11.2 % (0-10); NRBC Flagged by Analyzer 0 % (0-5); Neutrophil # 5.62 X10^3/uL (2.7-7.7); Neutrophil % 62.5 % (47-70); POSITIVE MORPHOLOGY YES; Platelet Count 391 K/mm3 (150-450); RBC Distribution Width CV 24.5 % (11.6-14.6); RBC Distribution Width SD 65.9 fl (35.1-43.9)
[2021-02-09 08:50] LABS: Differential Indicated SCAN CRITERIA MET
[2021-02-09 09:03] LABS: Anion Gap 7 (5-15); BUN 16 mg/dL (7-18); BUN/Creat Ratio 22.8 RATIO (10-20); Calcium,Total 8.7 mg/dL (8.5-10.1); Chloride 93 mmol/L (98-107); EST Glomerular Filtration Rate 85 mL/min (>60); Est Glom Filt Rate - Afr Amer 102 mL/min (>60); Glucose 132 mg/dL (74-106); Potassium 4.2 mmol/L (3.5-5.1); Sodium Level 128 mmol/L (136-145)
[2021-02-09 09:22] LABS: Anisocytosis 1+
== END ==
LOC: OLS.DANBUR 05:00
PROVIDERS: PCP Family Medicine; Visit Provider Family Medicine
DX: D64.9 Anemia, unspecified (principal); I10 Essential (primary) hypertension; E78.5 Hyperlipidemia, unspecified
CPT/HCPCS: 36415; 80048; 85025

== ENCOUNTER → 2021-03-04 05:00 | Outpatient (REF) | payer MEDICARE, OTHER, SELFPAY ==
[2021-01-21 11:04] VITALS: BMI 23.8
[2021-03-04 09:17] LABS: Anion Gap 7 (5-15); BUN 13 mg/dL (7-18); Calcium,Total 8.7 mg/dL (8.5-10.1); Chloride 92 mmol/L (98-107); Creatinine, Serum 0.77 mg/dL (0.55-1.02); EST Glomerular Filtration Rate 77 mL/min (>60); Est Glom Filt Rate - Afr Amer 93 mL/min (>60); Glucose 130 mg/dL (74-106); Potassium 4.3 mmol/L (3.5-5.1); Sodium Level 126 mmol/L (136-145)
== END ==
LOC: OLS.DANBUR 05:00
PROVIDERS: PCP Family Medicine; Referring Provider Family Medicine; Visit Provider Family Medicine
DX: E11.9 Type 2 diabetes mellitus without complications (principal); E78.5 Hyperlipidemia, unspecified
CPT/HCPCS: 36415; 80048

== ENCOUNTER → 2021-03-11 05:00 | Outpatient (REF) | payer MEDICARE, OTHER, SELFPAY ==
[2021-01-21 11:04] VITALS: BMI 23.8
[2021-03-11 08:05] LABS: Anion Gap 4 (5-15); BUN 16 mg/dL (7-18); BUN/Creat Ratio 23.3 RATIO (10-20); Calcium,Total 8.7 mg/dL (8.5-10.1); Chloride 96 mmol/L (98-107); Creatinine, Serum 0.69 mg/dL (0.55-1.02); EST Glomerular Filtration Rate 87 mL/min (>60); Est Glom Filt Rate - Afr Amer 105 mL/min (>60); Glucose 140 mg/dL (74-106); Sodium Level 130 mmol/L (136-145)
[2021-03-11 08:08] LABS: Absolute Neutrophil Count 5.3 X10^3/uL (2.0-7.7); Basophil# 0.04 X10^3/uL; Basophil% 0.5 % (0-1); Eosinophil# 0.23 X10^3/uL; Eosinophils% 2.8 % (0-5); Hematocrit 31.6 % (37-47); Hemoglobin 9.9 g/dL (12.0-15.0); Lymphocyte % 19.2 % (19-41); Mean Corp Hgb Conc 31.3 g/dL (32-36); Mean Corpuscular Hgb 24.9 pg (27.0-32.0); Mean Corpuscular Volume 79.4 fL (81-99); Mean Platelet Vol. 8.2 fl (6.2-12.0); Monocyte# 1.07 X10^3/uL; Monocyte% 12.8 % (0-10); NRBC Flagged by Analyzer 0 % (0-5); Neutrophil # 5.33 X10^3/uL (2.7-7.7); POSITIVE MORPHOLOGY YES; Platelet Count 312 K/mm3 (150-450); RBC Distribution Width CV 24.8 % (11.6-14.6); RBC Distribution Width SD 67.4 fl (35.1-43.9); Red Blood Count 3.98 M/mm3 (4.2-5.4); White Blood Count 8.3 K/mm3 (4.4-11.0)
[2021-03-11 08:22] LABS: Differential Indicated SCAN CRITERIA MET
[2021-03-11 08:43] LABS: Anisocytosis 2+; Differential Comment SCANNED
[2021-03-11 08:45] LABS: Microcytosis 1+
== END ==
LOC: OLS.DANBUR 05:00
PROVIDERS: PCP Family Medicine; Visit Provider Family Medicine
DX: F03.90 Unspecified dementia, unspecified severity, without behavioral disturbance, psychotic disturbance, mood disturbance, and anxiety (principal); E11.9 Type 2 diabetes mellitus without complications; I10 Essential (primary) hypertension; E78.5 Hyperlipidemia, unspecified; I25.10 Atherosclerotic heart disease of native coronary artery without angina pectoris
CPT/HCPCS: 36415; 80048; 85025

== ENCOUNTER → 2021-05-13 04:00 | Outpatient (REF) | payer MEDICARE, OTHER, SELFPAY ==
[2021-05-13 06:55] LABS: Hematocrit 30.4 % (37-47); Mean Corp Hgb Conc 32.9 g/dL (32-36); Mean Corpuscular Hgb 28.5 pg (27.0-32.0); Mean Corpuscular Volume 86.6 fL (81-99); Mean Platelet Vol. 7.9 fl (6.2-12.0); Platelet Count 280 K/mm3 (150-450); RBC Distribution Width CV 13.5 % (11.6-14.6); RBC Distribution Width SD 42.5 fl (35.1-43.9); Red Blood Count 3.51 M/mm3 (4.2-5.4); White Blood Count 8.2 K/mm3 (4.4-11.0)
[2021-05-13 07:05] LABS: Anion Gap 8 (5-15); BUN 13 mg/dL (7-18); BUN/Creat Ratio 19.8 RATIO (10-20); Calcium,Total 8.7 mg/dL (8.5-10.1); Chloride 89 mmol/L (98-107); Creatinine, Serum 0.66 mg/dL (0.55-1.02); EST Glomerular Filtration Rate 91 mL/min (>60); Est Glom Filt Rate - Afr Amer 111 mL/min (>60); Glucose 130 mg/dL (74-106); Potassium 4.3 mmol/L (3.5-5.1); Sodium Level 125 mmol/L (136-145)
== END ==
LOC: OLS.DANBUR 04:00
PROVIDERS: PCP Family Medicine; Referring Provider Family Medicine; Visit Provider Family Medicine
DX: I10 Essential (primary) hypertension (principal); E11.9 Type 2 diabetes mellitus without complications; E78.5 Hyperlipidemia, unspecified; I25.10 Atherosclerotic heart disease of native coronary artery without angina pectoris
CPT/HCPCS: 36415; 80048; 85027

== ENCOUNTER → 2021-07-15 05:00 | Outpatient (REF) | payer MEDICARE, OTHER, SELFPAY ==
[2021-07-15 09:47] LABS: Hematocrit 31.2 % (37-47); Hemoglobin 10.4 g/dL (12.0-15.0); Mean Corp Hgb Conc 33.3 g/dL (32-36); Mean Corpuscular Hgb 28.7 pg (27.0-32.0); Mean Corpuscular Volume 86.2 fL (81-99); Mean Platelet Vol. 8.3 fl (6.2-12.0); Platelet Count 292 K/mm3 (150-450); RBC Distribution Width CV 13.3 % (11.6-14.6); RBC Distribution Width SD 41.8 fl (35.1-43.9); Red Blood Count 3.62 M/mm3 (4.2-5.4); White Blood Count 8.9 K/mm3 (4.4-11.0)
[2021-07-15 10:11] LABS: ALB/GLOB Ratio 0.9 RATIO (0.9-2.4); AST(SGOT) 17 U/L (15-37); Alanine Aminotransfer ALT/SGPT 19 U/L (13-56); Alkaline Phosphatase 43 U/L (45-117); Anion Gap 8 (5-15); BUN 17 mg/dL (7-18); BUN/Creat Ratio 21.2 RATIO (10-20); Calcium,Total 9.2 mg/dL (8.5-10.1); Chloride 90 mmol/L (98-107); EST Glomerular Filtration Rate 73 mL/min (>60); Est Glom Filt Rate - Afr Amer 88 mL/min (>60); Globulin 3.4 g/dL (2.2-4.2); Glucose 124 mg/dL (74-106); Potassium 4.3 mmol/L (3.5-5.1); Protein, Total 6.4 g/dL (6.4-8.2); Sodium Level 125 mmol/L (136-145)
== END ==
LOC: OLS.DANBUR 05:00
PROVIDERS: PCP Family Medicine; Visit Provider Family Medicine
DX: E11.9 Type 2 diabetes mellitus without complications (principal); I10 Essential (primary) hypertension; E78.5 Hyperlipidemia, unspecified; F33.9 Major depressive disorder, recurrent, unspecified; I25.10 Atherosclerotic heart disease of native coronary artery without angina pectoris
CPT/HCPCS: 36415; 80053; 85027

== ENCOUNTER → 2021-09-16 | Outpatient (REF) | payer MEDICARE, OTHER, SELFPAY ==
[2021-09-16 08:08] LABS: Hematocrit 33.2 % (37-47); Hemoglobin 10.8 g/dL (12.0-15.0); Mean Corp Hgb Conc 32.5 g/dL (32-36); Mean Corpuscular Hgb 29.2 pg (27.0-32.0); Mean Corpuscular Volume 89.7 fL (81-99); Mean Platelet Vol. 8.7 fl (6.2-12.0); Platelet Count 258 K/mm3 (150-450); RBC Distribution Width CV 12.8 % (11.6-14.6); RBC Distribution Width SD 42.4 fl (35.1-43.9); White Blood Count 8.1 K/mm3 (4.4-11.0)
[2021-09-16 08:39] LABS: ALB/GLOB Ratio 0.9 RATIO (0.9-2.4); AST(SGOT) 14 U/L (15-37); Alanine Aminotransfer ALT/SGPT 23 U/L (13-56); Albumin, Serum 3.2 g/dL (3.2-5.0); Alkaline Phosphatase 44 U/L (45-117); Anion Gap 7 (5-15); BUN 19 mg/dL (7-18); Calcium,Total 8.8 mg/dL (8.5-10.1); Chloride 96 mmol/L (98-107); Creatinine, Serum 0.73 mg/dL (0.55-1.02); EST Glomerular Filtration Rate 81 mL/min (>60); Est Glom Filt Rate - Afr Amer 98 mL/min (>60); Globulin 3.6 g/dL (2.2-4.2); Glucose 150 mg/dL (74-106); Protein, Total 6.8 g/dL (6.4-8.2); Sodium Level 132 mmol/L (136-145)
== END | disposition home or self-care (01) ==
LOC: OLS.DANBUR 04:00
PROVIDERS: PCP Family Medicine; Visit Provider Family Medicine
DX: I10 Essential (primary) hypertension (principal); F03.90 Unspecified dementia, unspecified severity, without behavioral disturbance, psychotic disturbance, mood disturbance, and anxiety; E11.9 Type 2 diabetes mellitus without complications; E78.5 Hyperlipidemia, unspecified; I25.10 Atherosclerotic heart disease of native coronary artery without angina pectoris
CPT/HCPCS: 36415; 80053; 85027

== ENCOUNTER 2021-10-21 04:00 | Outpatient (REF) | payer MEDICARE, OTHER, SELFPAY | END 2021-10-21 23:59 | disposition home or self-care (01) | LOC: OLS.DANBUR 04:00 | PROVIDERS: PCP Family Medicine; Referring Provider Family Medicine; Visit Provider Family Medicine | DX: E11.9 Type 2 diabetes mellitus without complications (principal); E78.5 Hyperlipidemia, unspecified | CPT/HCPCS: 36415; 83036 ==

== ENCOUNTER → 2021-11-18 | Outpatient (REF) | payer MEDICARE, OTHER, SELFPAY ==
[2021-11-18 08:14] LABS: Hematocrit 31.8 % (37-47); Hemoglobin 10.5 g/dL (12.0-15.0); Mean Corpuscular Hgb 28.8 pg (27.0-32.0); Mean Corpuscular Volume 87.4 fL (81-99); Mean Platelet Vol. 8.7 fl (6.2-12.0); Platelet Count 251 K/mm3 (150-450); RBC Distribution Width CV 12.8 % (11.6-14.6); RBC Distribution Width SD 41.1 fl (35.1-43.9); Red Blood Count 3.64 M/mm3 (4.2-5.4); White Blood Count 8.5 K/mm3 (4.4-11.0)
[2021-11-18 08:33] LABS: ALB/GLOB Ratio 0.9 RATIO (0.9-2.4); AST(SGOT) 16 U/L (15-37); Alanine Aminotransfer ALT/SGPT 20 U/L (13-56); Albumin, Serum 3.1 g/dL (3.2-5.0); Alkaline Phosphatase 45 U/L (45-117); Anion Gap 6 (5-15); BUN 17 mg/dL (7-18); BUN/Creat Ratio 19.6 RATIO (10-20); Calcium,Total 8.9 mg/dL (8.5-10.1); Chloride 99 mmol/L (98-107); Creatinine, Serum 0.87 mg/dL (0.55-1.02); EST Glomerular Filtration Rate 66 mL/min (>60); Est Glom Filt Rate - Afr Amer 80 mL/min (>60); Globulin 3.4 g/dL (2.2-4.2); Glucose 157 mg/dL (74-106); Potassium 4.3 mmol/L (3.5-5.1); Protein, Total 6.5 g/dL (6.4-8.2); Sodium Level 132 mmol/L (136-145)
== END | disposition home or self-care (01) ==
LOC: OLS.DANBUR 04:00
PROVIDERS: PCP Family Medicine; Visit Provider Family Medicine
DX: F03.90 Unspecified dementia, unspecified severity, without behavioral disturbance, psychotic disturbance, mood disturbance, and anxiety (principal); E11.9 Type 2 diabetes mellitus without complications; I10 Essential (primary) hypertension; E78.5 Hyperlipidemia, unspecified
CPT/HCPCS: 36415; 80053; 85027

== ENCOUNTER → 2022-02-17 | Outpatient (REF) | payer MEDICARE, OTHER, SELFPAY ==
[2022-02-17 08:43] LABS: Hematocrit 30.4 % (37-47); Hemoglobin 9.6 g/dL (12.0-15.0); Mean Corp Hgb Conc 31.6 g/dL (32-36); Mean Corpuscular Hgb 25.9 pg (27.0-32.0); Mean Corpuscular Volume 82.2 fL (81-99); Mean Platelet Vol. 8.3 fl (6.2-12.0); Platelet Count 405 K/mm3 (150-450); RBC Distribution Width SD 39.2 fl (35.1-43.9); White Blood Count 10.3 K/mm3 (4.4-11.0)
[2022-02-17 08:52] LABS: Anion Gap 5 (5-15); BUN 13 mg/dL (7-18); BUN/Creat Ratio 16.6 RATIO (10-20); Calcium,Total 9.1 mg/dL (8.5-10.1); Chloride 93 mmol/L (98-107); Creatinine, Serum 0.78 mg/dL (0.55-1.02); EST Glomerular Filtration Rate 74 mL/min (>60); Est Glom Filt Rate - Afr Amer 90 mL/min (>60); Glucose 151 mg/dL (74-106); Potassium 4.3 mmol/L (3.5-5.1); Sodium Level 128 mmol/L (136-145)
== END | disposition home or self-care (01) ==
LOC: OLS.DANBUR 05:00
PROVIDERS: PCP Family Medicine; Visit Provider Family Medicine
DX: I10 Essential (primary) hypertension (principal)
CPT/HCPCS: 36415; 80048; 85027

== ENCOUNTER → 2022-04-25 | Outpatient (REF) | payer MEDICARE, OTHER, SELFPAY ==
[2022-04-25 08:55] LABS: Hematocrit 27.3 % (37-47); Hemoglobin 8.4 g/dL (12.0-15.0); Mean Corp Hgb Conc 30.8 g/dL (32-36); Mean Corpuscular Hgb 23.8 pg (27.0-32.0); Mean Corpuscular Volume 77.3 fL (81-99); Mean Platelet Vol. 8.2 fl (6.2-12.0); Platelet Count 474 K/mm3 (150-450); RBC Distribution Width CV 15.7 % (11.6-14.6); RBC Distribution Width SD 43.3 fl (35.1-43.9); Red Blood Count 3.53 M/mm3 (4.2-5.4); White Blood Count 11.5 K/mm3 (4.4-11.0)
[2022-04-25 09:28] LABS: ALB/GLOB Ratio 0.8 RATIO (0.9-2.4); AST(SGOT) 15 U/L (15-37); Alanine Aminotransfer ALT/SGPT 20 U/L (13-56); Alkaline Phosphatase 63 U/L (45-117); Anion Gap 7 (5-15); BUN 15 mg/dL (7-18); BUN/Creat Ratio 19.3 RATIO (10-20); Calcium,Total 8.9 mg/dL (8.5-10.1); Chloride 91 mmol/L (98-107); Creatinine, Serum 0.78 mg/dL (0.55-1.02); EST Glomerular Filtration Rate 75 mL/min (>60); Est Glom Filt Rate - Afr Amer 91 mL/min (>60); Glucose 151 mg/dL (74-106); Potassium 4.5 mmol/L (3.5-5.1); Sodium Level 125 mmol/L (136-145)
== END ==
LOC: OLS.DANBUR 05:00
PROVIDERS: PCP Family Medicine; Visit Provider Family Medicine
DX: I10 Essential (primary) hypertension (principal); E11.9 Type 2 diabetes mellitus without complications; E78.5 Hyperlipidemia, unspecified
CPT/HCPCS: 36415; 80053; 85027

== ENCOUNTER → 2022-05-02 | Outpatient (REF) | payer MEDICARE, OTHER, SELFPAY ==
[2022-05-02 08:22] LABS: Hematocrit 24.7 % (37-47); Hemoglobin 7.7 g/dL (12.0-15.0)
[2022-05-02 08:30] LABS: Anion Gap 8 (5-15); BUN 17 mg/dL (7-18); BUN/Creat Ratio 23.5 RATIO (10-20); Chloride 93 mmol/L (98-107); Creatinine, Serum 0.72 mg/dL (0.55-1.02); EST Glomerular Filtration Rate 82 mL/min (>60); Est Glom Filt Rate - Afr Amer 99 mL/min (>60); Glucose 138 mg/dL (74-106); Potassium 4.4 mmol/L (3.5-5.1); Sodium Level 128 mmol/L (136-145)
== END ==
LOC: OLS.DANBUR 04:00
PROVIDERS: PCP Family Medicine; Referring Provider Family Medicine; Visit Provider Family Medicine
DX: I10 Essential (primary) hypertension (principal); F03.90 Unspecified dementia, unspecified severity, without behavioral disturbance, psychotic disturbance, mood disturbance, and anxiety; E11.9 Type 2 diabetes mellitus without complications; E78.5 Hyperlipidemia, unspecified
CPT/HCPCS: 36415; 80048; 85014; 85018

== ENCOUNTER → 2022-05-05 | Outpatient (CLI) | payer MEDICARE, OTHER, SELFPAY ==
[2022-05-05] VITALS (7 sets, daily range): BP systolic 107–136; BP diastolic 54–69; PULSE 72–96; RESP 16; TEMP 35.8–36.4; O2SAT 97–100
[2022-05-05] MEDS: 0.9% NaCl Peripheral Flush Adult/Peds IV (08:36)
[2022-05-05] MEDS: Acetaminophen 500 MG Tablet 1000 MG PO (08:36)
== END | disposition home or self-care (01) ==
LOC: MEDOUTP 08:10
PROVIDERS: PCP Family Medicine; Referring Provider Family Medicine; Visit Provider Family Medicine
DX: D50.9 Iron deficiency anemia, unspecified (principal)
CPT/HCPCS: 36415; 36430; 86850; 86900; 86901; 86920; 86922; J7040; P9016; A4216

== ENCOUNTER → 2022-05-05 | Outpatient (REF) | payer MEDICARE, OTHER, SELFPAY | LOC: OLS.DANBUR 05:00 | PROVIDERS: PCP Family Medicine; Visit Provider Family Medicine | DX: D64.9 Anemia, unspecified (principal) | CPT/HCPCS: 36415; 86850; 86900; 86901; 86920 ==

== ENCOUNTER → 2022-05-11 | Outpatient (REF) | payer MEDICARE, OTHER, SELFPAY ==
[2022-05-11 08:16] LABS: Bacteria 0 SEEN /hpf (None Seen); Mucous, Urine 0 SEEN /hpf (<or=2+); Red Blood Cells-Urine 0 SEEN /hpf (0-5)
[2022-05-11 09:24] LABS: Color, Urine Yellow (Yellow); Glucose, Dipstick Normal (Normal); Ketone-Dipstick Negative (Negative); Leukocyte Esterase-Dipstick 100 /ul (Negative); Nitrite-Dipstick Negative (Negative); Occult Blood-Urine Negative /ul (Negative); Protein-Dipstick Negative (Negative); Specific Gravity, Urine 1.015 (1.002-1.030); Urine Bilirubin Dipstick Negative (Negative); Urine Clarity Sl. Cloudy (Clear); Urine Urobilinogen Normal (Normal)
[2022-05-11 09:32] LABS: Squamous Epithelial Cells - UA 0-5 SEEN /hpf (5-10); White Blood Cells 10-25 SEEN /hpf (0-5)
== END ==
LOC: OLS.DANBUR 00:45
PROVIDERS: PCP Family Medicine; Visit Provider Family Medicine
DX: F03.90 Unspecified dementia, unspecified severity, without behavioral disturbance, psychotic disturbance, mood disturbance, and anxiety (principal); I10 Essential (primary) hypertension; R30.9 Painful micturition, unspecified
CPT/HCPCS: 81001; 87086; 87088

== ENCOUNTER → 2022-05-19 | Outpatient (REF) | payer MEDICARE, OTHER, SELFPAY ==
[2022-05-19 08:17] LABS: Hematocrit 31.5 % (37-47); Mean Corp Hgb Conc 31.7 g/dL (32-36); Mean Corpuscular Hgb 24.6 pg (27.0-32.0); Mean Corpuscular Volume 77.6 fL (81-99); Mean Platelet Vol. 8.2 fl (6.2-12.0); Platelet Count 386 K/mm3 (150-450); RBC Distribution Width CV 15.4 % (11.6-14.6); RBC Distribution Width SD 42.8 fl (35.1-43.9); Red Blood Count 4.06 M/mm3 (4.2-5.4); White Blood Count 8.6 K/mm3 (4.4-11.0)
[2022-05-19 08:54] LABS: Anion Gap 9 (5-15); BUN 15 mg/dL (7-18); BUN/Creat Ratio 20.8 RATIO (10-20); Calcium,Total 8.8 mg/dL (8.5-10.1); Chloride 92 mmol/L (98-107); Creatinine, Serum 0.72 mg/dL (0.55-1.02); EST Glomerular Filtration Rate 82 mL/min (>60); Est Glom Filt Rate - Afr Amer 99 mL/min (>60); Glucose 131 mg/dL (74-106); Potassium 4.3 mmol/L (3.5-5.1); Sodium Level 127 mmol/L (136-145)
== END ==
LOC: OLS.DANBUR 05:00
PROVIDERS: PCP Family Medicine; Visit Provider Family Medicine
DX: I10 Essential (primary) hypertension (principal); E11.9 Type 2 diabetes mellitus without complications; E78.5 Hyperlipidemia, unspecified; D64.9 Anemia, unspecified
CPT/HCPCS: 36415; 80048; 85027

== ENCOUNTER → 2022-05-24 | Outpatient (REF) | payer MEDICARE, OTHER, SELFPAY ==
[2022-05-24 08:39] LABS: Hematocrit 32.5 % (37-47); Hemoglobin 10.3 g/dL (12.0-15.0); Mean Corp Hgb Conc 31.7 g/dL (32-36); Mean Corpuscular Hgb 24.5 pg (27.0-32.0); Mean Corpuscular Volume 77.2 fL (81-99); Platelet Count 404 K/mm3 (150-450); RBC Distribution Width CV 15.4 % (11.6-14.6); RBC Distribution Width SD 43.4 fl (35.1-43.9); Red Blood Count 4.21 M/mm3 (4.2-5.4); White Blood Count 10.5 K/mm3 (4.4-11.0)
[2022-05-24 08:53] LABS: ALB/GLOB Ratio 0.7 RATIO (0.9-2.4); AST(SGOT) 19 U/L (15-37); Alanine Aminotransfer ALT/SGPT 26 U/L (13-56); Alkaline Phosphatase 63 U/L (45-117); Anion Gap 8 (5-15); BUN 13 mg/dL (7-18); BUN/Creat Ratio 20.1 RATIO (10-20); Calcium,Total 9.2 mg/dL (8.5-10.1); Chloride 89 mmol/L (98-107); Creatinine, Serum 0.65 mg/dL (0.55-1.02); EST Glomerular Filtration Rate 93 mL/min (>60); Est Glom Filt Rate - Afr Amer 112 mL/min (>60); Ferritin 15 ng/mL (8-252); Globulin 4.2 g/dL (2.2-4.2); Glucose 145 mg/dL (74-106); Iron 21 ug/dL (50-170); Potassium 4.5 mmol/L (3.5-5.1); Protein, Total 7.2 g/dL (6.4-8.2); Sodium Level 123 mmol/L (136-145)
== END ==
LOC: OLS.DANBUR 05:00
PROVIDERS: PCP Family Medicine; Visit Provider Family Medicine
DX: D64.9 Anemia, unspecified (principal)
CPT/HCPCS: 36415; 80053; 82728; 83540; 85027

== ENCOUNTER → 2022-06-23 | Outpatient (REF) | payer MEDICARE, OTHER, SELFPAY ==
[2022-06-23 10:05] LABS: Hemoglobin 9.4 g/dL (12.0-15.0); Mean Corp Hgb Conc 30.3 g/dL (32-36); Mean Corpuscular Hgb 23.9 pg (27.0-32.0); Mean Corpuscular Volume 78.7 fL (81-99); Mean Platelet Vol. 8.1 fl (6.2-12.0); Platelet Count 474 K/mm3 (150-450); RBC Distribution Width CV 16.2 % (11.6-14.6); RBC Distribution Width SD 46.4 fl (35.1-43.9); Red Blood Count 3.94 M/mm3 (4.2-5.4); White Blood Count 11.2 K/mm3 (4.4-11.0)
[2022-06-23 10:19] LABS: Anion Gap 5 (5-15); BUN 27 mg/dL (7-18); BUN/Creat Ratio 31.9 RATIO (10-20); Calcium,Total 9.3 mg/dL (8.5-10.1); Chloride 95 mmol/L (98-107); Creatinine, Serum 0.85 mg/dL (0.55-1.02); EST Glomerular Filtration Rate 68 mL/min (>60); Est Glom Filt Rate - Afr Amer 82 mL/min (>60); Glucose 158 mg/dL (74-106); Potassium 4.3 mmol/L (3.5-5.1); Sodium Level 130 mmol/L (136-145)
== END ==
LOC: OLS.DANBUR 05:00
PROVIDERS: PCP Family Medicine; Visit Provider Family Medicine
DX: F03.90 Unspecified dementia, unspecified severity, without behavioral disturbance, psychotic disturbance, mood disturbance, and anxiety (principal); I10 Essential (primary) hypertension; E78.5 Hyperlipidemia, unspecified
CPT/HCPCS: 36415; 80048; 85027

== ENCOUNTER → 2022-07-07 | Outpatient (REF) | payer MEDICARE, OTHER, SELFPAY ==
[2022-07-07 07:26] LABS: Hematocrit 29.2 % (37-47); Mean Corp Hgb Conc 30.8 g/dL (32-36); Mean Corpuscular Hgb 24.5 pg (27.0-32.0); Mean Corpuscular Volume 79.3 fL (81-99); Mean Platelet Vol. 8.2 fl (6.2-12.0); Platelet Count 349 K/mm3 (150-450); RBC Distribution Width CV 16.8 % (11.6-14.6); RBC Distribution Width SD 48.8 fl (35.1-43.9); Red Blood Count 3.68 M/mm3 (4.2-5.4); White Blood Count 9.1 K/mm3 (4.4-11.0)
[2022-07-07 07:45] LABS: Anion Gap 7 (5-15); BUN 21 mg/dL (7-18); BUN/Creat Ratio 23.2 RATIO (10-20); Chloride 99 mmol/L (98-107); Creatinine, Serum 0.91 mg/dL (0.55-1.02); EST Glomerular Filtration Rate 63 mL/min (>60); Est Glom Filt Rate - Afr Amer 76 mL/min (>60); Glucose 176 mg/dL (74-106); Potassium 4.4 mmol/L (3.5-5.1); Sodium Level 131 mmol/L (136-145)
[2022-07-07 11:07] LABS: RET-HE 27.3 pg (30-35); Reticulocyte Count 2.59 % (0.5-1.5)
== END ==
LOC: OLS.DANBUR 05:00
PROVIDERS: PCP Family Medicine; Visit Provider Family Medicine
DX: I10 Essential (primary) hypertension (principal); F03.90 Unspecified dementia, unspecified severity, without behavioral disturbance, psychotic disturbance, mood disturbance, and anxiety; E11.9 Type 2 diabetes mellitus without complications; E78.5 Hyperlipidemia, unspecified; D64.9 Anemia, unspecified
CPT/HCPCS: 36415; 80048; 85027; 85045

== ENCOUNTER → 2022-09-22 | Outpatient (REF) | payer MEDICARE, OTHER, SELFPAY ==
[2022-09-22 10:09] LABS: Mean Corpuscular Volume 77.3 fL (81-99); Mean Platelet Vol. 8.5 fl (6.2-12.0); Platelet Count 409 K/mm3 (150-450); RBC Distribution Width CV 14.6 % (11.6-14.6); RBC Distribution Width SD 41.4 fl (35.1-43.9); Red Blood Count 3.75 M/mm3 (4.2-5.4); White Blood Count 9.6 K/mm3 (4.4-11.0)
[2022-09-22 11:17] LABS: ALB/GLOB Ratio 0.7 RATIO (0.9-2.4); AST(SGOT) 10 U/L (15-37); Alanine Aminotransfer ALT/SGPT 16 U/L (13-56); Albumin, Serum 2.9 g/dL (3.2-5.0); Alkaline Phosphatase 63 U/L (45-117); Anion Gap 10 (5-15); BUN 18 mg/dL (7-18); BUN/Creat Ratio 24.7 RATIO (10-20); Calcium,Total 9.1 mg/dL (8.5-10.1); Chloride 91 mmol/L (98-107); Creatinine, Serum 0.73 mg/dL (0.55-1.02); EST Glomerular Filtration Rate 81 mL/min (>60); Est Glom Filt Rate - Afr Amer 98 mL/min (>60); Globulin 4.3 g/dL (2.2-4.2); Glucose 155 mg/dL (74-106); Potassium 4.5 mmol/L (3.5-5.1); Protein, Total 7.2 g/dL (6.4-8.2); Sodium Level 126 mmol/L (136-145)
== END ==
LOC: OLS.DANBUR 05:00
PROVIDERS: PCP Family Medicine; Visit Provider Family Medicine
DX: I10 Essential (primary) hypertension (principal); E78.5 Hyperlipidemia, unspecified; E03.9 Hypothyroidism, unspecified
CPT/HCPCS: 36415; 80053; 85027

== ENCOUNTER → 2022-10-20 | Outpatient (REF) | payer MEDICARE, OTHER, SELFPAY ==
[2022-10-20 05:45] LABS: Absolute Lymphocyte Count 1.69 X10^3/uL (0.83-4.51); Absolute Neutrophil Count 5.9 X10^3/uL (2.0-7.7); Basophil# 0.07 X10^3/uL; Basophil% 0.7 % (0-1); Eosinophil# 0.29 X10^3/uL; Eosinophils% 3.1 % (0-5); Hematocrit 27.5 % (37-47); Hemoglobin 8.3 g/dL (12.0-15.0); Lymphocyte # 1.69 X10^3/ul (0.83-4.51); Lymphocyte % 18.1 % (19-41); Mean Corp Hgb Conc 30.2 g/dL (32-36); Mean Corpuscular Hgb 23.2 pg (27.0-32.0); Mean Platelet Vol. 7.9 fl (6.2-12.0); Monocyte# 1.29 X10^3/uL; Monocyte% 13.8 % (0-10); NRBC Flagged by Analyzer 0 % (0-5); Neutrophil # 5.94 X10^3/uL (2.7-7.7); Neutrophil % 63.6 % (47-70); Platelet Count 379 K/mm3 (150-450); RBC Distribution Width CV 13.8 % (11.6-14.6); RBC Distribution Width SD 39.4 fl (35.1-43.9); Red Blood Count 3.57 M/mm3 (4.2-5.4); White Blood Count 9.4 K/mm3 (4.4-11.0)
[2022-10-20 06:23] LABS: Anion Gap 8 (5-15); BUN 17 mg/dL (7-18); BUN/Creat Ratio 21.7 RATIO (10-20); Chloride 90 mmol/L (98-107); Creatinine, Serum 0.78 mg/dL (0.55-1.02); EST Glomerular Filtration Rate 74 mL/min (>60); Est Glom Filt Rate - Afr Amer 90 mL/min (>60); Glucose 169 mg/dL (74-106); Potassium 4.4 mmol/L (3.5-5.1); Sodium Level 127 mmol/L (136-145)
== END ==
LOC: OLS.DANBUR 05:00
PROVIDERS: PCP Family Medicine; Visit Provider Family Medicine
DX: I10 Essential (primary) hypertension (principal); E78.5 Hyperlipidemia, unspecified
CPT/HCPCS: 36415; 80048; 85025

== ENCOUNTER → 2022-11-24 | Outpatient (REF) | payer MEDICARE, OTHER, SELFPAY ==
[2022-11-24 08:36] LABS: Absolute Lymphocyte Count 1.58 X10^3/uL (0.83-4.51); Absolute Neutrophil Count 7.7 X10^3/uL (2.0-7.7); Basophil# 0.04 X10^3/uL; Basophil% 0.4 % (0-1); Eosinophil# 0.17 X10^3/uL; Eosinophils% 1.6 % (0-5); Hematocrit 24.8 % (37-47); Hemoglobin 7.7 g/dL (12.0-15.0); Lymphocyte # 1.58 X10^3/ul (0.83-4.51); Lymphocyte % 14.5 % (19-41); Mean Corpuscular Hgb 23.1 pg (27.0-32.0); Mean Corpuscular Volume 74.5 fL (81-99); Mean Platelet Vol. 8.2 fl (6.2-12.0); Monocyte# 1.36 X10^3/uL; Monocyte% 12.5 % (0-10); NRBC Flagged by Analyzer 0 % (0-5); Neutrophil # 7.69 X10^3/uL (2.7-7.7); Neutrophil % 70.4 % (47-70); Platelet Count 428 K/mm3 (150-450); RBC Distribution Width CV 14.4 % (11.6-14.6); RBC Distribution Width SD 38.7 fl (35.1-43.9); Red Blood Count 3.33 M/mm3 (4.2-5.4); White Blood Count 10.9 K/mm3 (4.4-11.0)
[2022-11-24 08:45] LABS: Anion Gap 8 (5-15); BUN 30 mg/dL (7-18); BUN/Creat Ratio 35.7 RATIO (10-20); Chloride 96 mmol/L (98-107); Creatinine, Serum 0.84 mg/dL (0.55-1.02); EST Glomerular Filtration Rate 68 mL/min (>60); Est Glom Filt Rate - Afr Amer 83 mL/min (>60); Glucose 184 mg/dL (74-106); Potassium 4.4 mmol/L (3.5-5.1); Sodium Level 131 mmol/L (136-145)
== END ==
LOC: OLS.DANBUR 05:00
PROVIDERS: PCP Family Medicine; Visit Provider Family Medicine
DX: E11.9 Type 2 diabetes mellitus without complications (principal); I10 Essential (primary) hypertension; E78.5 Hyperlipidemia, unspecified
CPT/HCPCS: 36415; 80048; 85025

== ENCOUNTER → 2022-11-28 | Outpatient (CLI) | payer MEDICARE, OTHER, SELFPAY ==
[2022-11-28] MEDS: 0.9% NaCl Peripheral Flush Adult/Peds IV (09:34)
[2022-11-28 09:41] VITALS: BP 117/56; PULSE 86; RESP 16; TEMP 36.1; O2SAT 95; BMI 23.2
[2022-11-28 10:25] VITALS: BP 111/43; PULSE 75; RESP 18; TEMP 35.9; O2SAT 99
[2022-11-28 11:28] VITALS: BP 120/56; PULSE 82; RESP 16; TEMP 35.9; O2SAT 99
[2022-11-28 12:12] VITALS: BP 119/51; PULSE 100; RESP 14; TEMP 36.3; O2SAT 99
[2022-11-28 12:27] VITALS: BP 117/56; PULSE 93; RESP 16; TEMP 36.5; O2SAT 99
[2022-11-28 14:00] VITALS: BP 122/65; PULSE 88; RESP 16; TEMP 36.1; O2SAT 96
== END | disposition home or self-care (01) ==
LOC: MEDOUTP 09:19
PROVIDERS: PCP Family Medicine; Referring Provider Family Medicine; Visit Provider Family Medicine
DX: D64.9 Anemia, unspecified (principal)
CPT/HCPCS: 36415; 36430; 86850; 86900; 86901; 86920; 86922; J7040; P9016; A4216

== ENCOUNTER → 2022-12-26 | Outpatient (REF) | payer MEDICARE, OTHER, SELFPAY ==
[2022-12-26 07:57] LABS: Hematocrit 32.2 % (37-47); Mean Corp Hgb Conc 31.1 g/dL (32-36); Mean Corpuscular Hgb 23.9 pg (27.0-32.0); Mean Platelet Vol. 8.5 fl (6.2-12.0); Platelet Count 380 K/mm3 (150-450); RBC Distribution Width CV 18.9 % (11.6-14.6); RBC Distribution Width SD 52.5 fl (35.1-43.9); Red Blood Count 4.18 M/mm3 (4.2-5.4); White Blood Count 9.3 K/mm3 (4.4-11.0)
== END ==
LOC: OLS.DANBUR 05:00
PROVIDERS: PCP Family Medicine; Visit Provider Family Medicine
DX: E11.9 Type 2 diabetes mellitus without complications (principal); E78.5 Hyperlipidemia, unspecified; I25.10 Atherosclerotic heart disease of native coronary artery without angina pectoris
CPT/HCPCS: 36415; 85027

== ENCOUNTER → 2023-03-04 | Outpatient (REF) | payer MEDICARE, OTHER, SELFPAY ==
[2023-03-04 14:51] LABS: Mucous, Urine 0 SEEN /hpf (<or=2+)
[2023-03-04 15:02] LABS: Glucose, Dipstick Normal (Normal); Ketone-Dipstick Negative (Negative); Leukocyte Esterase-Dipstick 500 /ul (Negative); Nitrite-Dipstick Positive (Negative); Occult Blood-Urine 10 /ul (Negative); Protein-Dipstick Negative (Negative); Specific Gravity, Urine 1.005 (1.002-1.030); Urine Bilirubin Dipstick Negative (Negative); Urine Urobilinogen Normal (Normal)
[2023-03-04 15:53] LABS: Color, Urine Yellow (Yellow); Urine Clarity Cloudy (Clear)
[2023-03-04 16:30] LABS: Bacteria 1+ /hpf (None Seen); Red Blood Cells-Urine 0-5 SEEN /hpf (0-5); Squamous Epithelial Cells - UA 0-5 SEEN /hpf (5-10); White Blood Cells 10-25 SEEN /hpf (0-5)
== END ==
LOC: OLS.DANBUR 14:48
PROVIDERS: PCP Family Medicine; Visit Provider Family Medicine
DX: R41.82 Altered mental status, unspecified (principal)
CPT/HCPCS: 81001; 87077; 87086; 87088; 87186